=== PATIENT | male | born 1935 | race Caucasian/White ===

== ENCOUNTER → 2017-03-03 | Outpatient (CLI) | payer OTHER ==
--- NOTE | 2017-03-03 13:20 | REP ---
PA and lateral chest: Comparison is 11/19/2015. Lung carter are hyperinflated, unchanged. Cardiac size is borderline enlarged, unchanged. There are no nodules or masses. There are no infiltrates or effusions. 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 Impression: There is no interval change. Signed by Nathanael Andino MD 03/03/2017 10:30 A
== END ==
LOC: M SMT 08:58
PROVIDERS: ATTEND Internal Medicine Pulmonary Disease
DX: J44.9 Chronic obstructive pulmonary disease, unspecified (principal)

== ENCOUNTER → 2017-04-08 | Outpatient (CLI) | payer OTHER ==
[2017-04-08 14:10] LABS: BASO % 0.3 % (0.0-1.0); EOS # 0.1 K/mm3 (0.0-0.50); EOS % 0.9 % (0.0-3.0); LARGE UNSTAINED CELL # 0.2 K/mm3 (0.0-0.4); MEAN CORPUSCULAR HEMOGLOBIN 30.9 pg (27.0-33.0); MEAN CORPUSCULAR VOLUME 93.7 fl (80.0-96.0); MONO # 0.5 K/mm3 (0.0-0.8); MONO % 5.8 % (0.0-5.0); NEUTROPHILS # 7.1 K/mm3 (1.8-7.7); PLATELET COUNT, AUTOMATED 320 k/mm3 (150-450); RED CELL DISTRIBUTION WIDTH 14.8 % (11.5-14.5); WHITE BLOOD COUNT 8.9 K/mm3 (4.0-10.0)
[2017-04-12 14:12] LABS: D001-IgE D pteronyssinus <0.10 kU/L (Class 0); E001-IgE Cat Epith/Dander < 0.10 kU/L (Class 0); E005-IgE Dog Dander < 0.10 kU/L (Class 0); G002-IgE Bermuda Grass < 0.10 kU/L (Class 0); G008-IgE Kentucky Bluegrass < 0.10 kU/L (Class 0); M001-IgE Penicillium chrysogen < 0.10 kU/L (Class 0); M002 IgE Cladosporium herbaru < 0.10 kU/L (Class 0); M003 IgE Aspergillus fumigatu < 0.10 kU/L (Class 0); M006-IgE Alternaria alternata < 0.10 kU/L (Class 0); T001-IgE Maple/Box Elder < 0.10 kU/L (Class 0); T003-IgE Common Silver Birch < 0.10 kU/L (Class 0); T007-IgE Oak, White < 0.10 kU/L (Class 0); T008-IgE Elm, American < 0.10 kU/L (Class 0); T015-IgE Ash, White < 0.10 kU/L (Class 0); T041-IgE Hickory, White < 0.10 kU/L (Class 0); W001-IgE Ragweed, Short < 0.10 kU/L (Class 0); W009-IgE Plantain, English < 0.10 kU/L (Class 0); W014-IgE Pigweed, Rough < 0.10 kU/L (Class 0); W018-IgE Sheep Sorrel < 0.10 kU/L (Class 0)
== END ==
LOC: M SMT 09:08
PROVIDERS: ATTEND Internal Medicine Pulmonary Disease
DX: J44.1 Chronic obstructive pulmonary disease with (acute) exacerbation (principal)

== ENCOUNTER → 2017-05-02 | Outpatient (CLI) | payer OTHER ==
--- NOTE | 2017-05-03 02:24 | REP ---
Clinical: Dyspnea. Shortness of breath. Technique: PA and lateral. Comparison: 03/03/2017. Findings: Mediastinum and cardiac silhouette are within normal limits and stable. Lung carter demonstrate chronic, stable interstitial changes without acute consolidation, definite effusion, or pneumothorax. Blunting of the left costophrenic angle and diaphragmatic surface appears chronic. Skeletal structures demonstrate stable degenerative changes. Impression: Chronic stable changes. No acute cardiopulmonary process appreciated. Signed by Chris Diaz MD 05/03/2017 02:16 A
== END ==
LOC: M SMT 10:25
PROVIDERS: ATTEND Internal Medicine Cardiovascular Disease
DX: R06.02 Shortness of breath (principal)

== ENCOUNTER → 2017-06-29 | Outpatient (REF) | payer OTHER | LOC: M LAB REF 13:15 | PROVIDERS: ATTEND Internal Medicine Pulmonary Disease | DX: J44.1 Chronic obstructive pulmonary disease with (acute) exacerbation (principal) ==

== ENCOUNTER → 2017-06-30 | Outpatient (CLI) | payer OTHER ==
--- NOTE | 2017-06-30 14:15 | REP ---
PA and lateral chest: Comparisons are 05/02/2017 and 01/30/2015 per There are no infiltrates or effusions. Cardiac size is normal. The ruma and mediastinum are unremarkable. There is chronic mild interstitial coarsening compatible with chronic interstitial lung disease, unchanged. Impression: There are no new or acute cardiopulmonary findings. There are chronic stable findings. Signed by Nathanael Andino MD 06/30/2017 02:06 P
[2017-06-30 17:37] LABS: MEAN CORPUSCULAR HEMOGLOBIN 29.2 pg (27.0-33.0); MEAN CORPUSCULAR VOLUME 91.3 fl (80.0-96.0); PLATELET COUNT, AUTOMATED 503 10^3/uL (150-450); RED CELL DISTRIBUTION WIDTH 16.1 % (11.5-14.5); WHITE BLOOD COUNT 26.9 10^3/uL (4.0-10.0)
[2017-06-30 17:58] LABS: ADD MANUAL DIFFER YES; DIFF SLIDE NUMBER 232; POS COUNT POS FLAG; POSITIVE MORPH POS FLAG; WBC SCAT POS FLAG
[2017-06-30 18:32] LABS: ALBUMIN 3.3 GM/DL (3.2-5.2); CALCIUM LEVEL 9.3 MG/DL (8.8-10.2); CREATININE FOR GFR 1.44 MG/DL (0.70-1.30); GLOMERULAR FILTRATION RATE 50.4 (>42); POTASSIUM SERUM 4.7 MEQ/L (3.5-5.1)
[2017-06-30 20:49] LABS: ANISOCYTOSIS 1+; GIANT PLATELETS 1+
== END ==
LOC: M SMT 13:28
PROVIDERS: ATTEND Nurse Practitioner Adult Health
DX: R06.02 Shortness of breath (principal); R09.02 Hypoxemia; J44.9 Chronic obstructive pulmonary disease, unspecified

== ENCOUNTER → 2017-11-23 | Outpatient (CLI) | payer OTHER | LOC: M SMT 12:57 | DX: J44.1 Chronic obstructive pulmonary disease with (acute) exacerbation (principal) | CPT/HCPCS: 71046 ==

== ENCOUNTER 2020-07-26 08:44 | Inpatient (IN) | payer MEDICARE, OTHER ==
[~2020-07-26] VITALS: Ht 172.7 cm; Wt 88.1 kg
[2020-07-26] MEDS ORDERED: NS 1,000 ML IV SCH (09:10)
[2020-07-26] MEDS ORDERED: methylPREDNISolone 125MG 2ML VIAL IV ONE (09:15)
[2020-07-26] MEDS: COMBIVENT RESPIMAT 100-20MCG INHALER 4GM INH SCH ×4 (09:33→20:00)
[2020-07-26 09:48] LABS: BASO % 0.2 % (0.0-1.0); HEMOGLOBIN 13.9 g/dl (13.5-17.5); LYMPH # 0.5 10^3/uL (1.5-5.0); LYMPH % 3.2 % (24.0-44.0); MEAN CORPUSCULAR HEMOGLOBIN 29.3 pg (27.0-33.0); MEAN CORPUSCULAR HGB CONC 30.9 g/dl (32.0-36.5); MEAN CORPUSCULAR VOLUME 94.7 fl (80.0-96.0); MONO # 0.9 10^3/uL (0.0-0.8); MONO % 6.3 % (0.0-5.0); NEUTROPHILS # 12.8 10^3/uL (1.5-8.5); NEUTROPHILS % 88.4 % (36.0-66.0); PLATELET COUNT, AUTOMATED 286 10^3/uL (150-450); RED BLOOD COUNT 4.75 10^6/uL (4.30-6.10); WHITE BLOOD COUNT 14.5 10^3/uL (4.0-10.0)
--- NOTE | 2020-07-26 09:48 | REP ---
INDICATION: DYSPNEA/COUGH COMPARISON: 11/23/2017 TECHNIQUE: Portable AP view of the chest FINDINGS: The visualized cardiac silhouette appears enlarged suggesting cardiomegaly which may represent a new finding as compared to prior examination. Lung carter demonstrate chronic interstitial changes and evidence for COPD. Superimposed lower lobe infiltrates are identified. No obvious effusion. No pneumothorax. Skeletal structures are intact. IMPRESSION: 1. Questionable relatively new onset cardiomegaly. 2. Chronic changes with superimposed lower lobe opacities/infiltrates. <Electronically signed by Chris Diaz > 07/26/20 [id number]
[2020-07-26] MEDS ORDERED: cefTRIAXone SOD 1 GM in D5W MINI-BAG PLUS 50 ML IV ONE (10:15)
[2020-07-26] MEDS ORDERED: AZITHROMYCIN INJ 500 MG, VIAL MATE ADAPTER 1 EACH in D5W 250 ML IV ONE (10:15)
[2020-07-26 10:21] LABS: ALBUMIN 3.4 GM/DL (3.2-5.2); BILIRUBIN,DIRECT 0.2 MG/DL (0.0-0.2); BILIRUBIN,TOTAL 0.8 MG/DL (0.2-1.0); CALCIUM LEVEL 9.2 MG/DL (8.8-10.2); CK-MB VALUE MASS 1.6 NG/ML (<3.6); CREATININE FOR GFR 1.46 MG/DL (0.70-1.30); GLOMERULAR FILTRATION RATE 49.1 (>35); MB/CK RELATIVE INDEX 1.54 (< OR =4); POTASSIUM SERUM 4.6 MEQ/L (3.5-5.1); THYROID STIMULATING HORMONE 2.08 uIU/ML (0.358-3.740); THYROXINE (T4) 10.4 UG/DL (4.5-12.0); TOTAL PROTEIN 6.4 GM/DL (6.4-8.2); TROPONIN I 0.1 NG/ML (< 0.10)
[2020-07-26] MEDS ORDERED: AMIO200T3 PO (10:59)
[2020-07-26] MEDS ORDERED: FURO40TA2 PO (10:59)
[2020-07-26] MEDS ORDERED: IPRA0.00 INH (10:59)
[2020-07-26] MEDS ORDERED: ALLO100T PO (10:59)
[2020-07-26] MEDS ORDERED: PRED10TA2 PO (10:59)
[2020-07-26] MEDS ORDERED: PERF20NE2 INH (10:59)
[2020-07-26] MEDS ORDERED: D31000TA PO (10:59)
[2020-07-26] MEDS ORDERED: ATOR40TA75 PO (10:59)
[2020-07-26] MEDS ORDERED: SPIR-10 PO (10:59)
[2020-07-26] MEDS ORDERED: ASPI81TA26 PO (11:00)
[2020-07-26] MEDS ORDERED: LORA-622 PO (11:00)
[2020-07-26] MEDS ORDERED: IPRATROPIUM 0.5MG/ALBUTEROL 2.5MG INH SOL UD 3ML (DUONEB) NEB PRN (13:15)
[2020-07-26] MEDS: dexameTHASONE 4 MG/ML 1ML VIAL (J1100 PER 1MG) IV SCH (13:19)
--- NOTE | 2020-07-26 15:55 | HPEPDOC ---
[facility] Medical History & Physical Date of Admission Jul 26, 2020 Date of Service: Jul 26, 2020 History and Physical CHIEF COMPLAINT: shortness of breath HISTORY OF PRESENT ILLNESS: 85 year old male presents for several day history of worsening shortness of breath. patient has hypoxic respiratory failure at baseline requiring 3-4L supplemental oxygen. Denies know sick contacts, chest pain, abdominal pain, nausea, vomiting, diarrhea. PAST MEDICAL HISTORY: #afib? #gout #DLP #CHF #COPD #chronic hypoxic respiratory failure requiring supplemental oxygen - 3L ALLERGIES: Please see below. REVIEW OF SYSTEMS: Negative except as per HPI. HOME MEDICATIONS: Please see below. PHYSICAL EXAMINATION: VITAL SIGNS: See below LABORATORY DATA: See below. MICROBIOLOGY: Please see below. A/P: 85yo male for several day history of worsening shortness of breath. Respiratory panel positive for COVID with past medical history of hypertension, COPD, chronic hypoxic respiratory failure, afib, CHF. #respiratory distress - secondary to COVID-19 - supplemental oxygen - dexa day #1 - remdesevir day #1 (loading dose) - abx given likely concomitant copd exacerbation - ceftriaxone/azithro day #1 #COVID 19 - as above - coags still pending to determine anticoagulation #HTN #gout #CHF - lasix #copd - as above, steroids, respiratory treatments, supplemental oxygen, IS, acapella #DVT prophylaxis Vital Signs Vital Signs Date Time Temp Pulse Resp B/P (MAP) Pulse Ox O2 Delivery O2 Flow Rate FiO2 07/26/20 15:17 96.0 07/26/20 15:15 22 101/50 (67) 07/26/20 15:13 96 07/26/20 11:28 Nasal Cannula 6.0 07/26/20 08:46 30 Laboratory Data Labs 24H Laboratory Tests 2 07/26/20 09:10: Anion Gap 7L, Glomerular Filtration Rate 49.1, Calcium Level 9.2, Total Bilirubin 0.8, Direct Bilirubin 0.2, Aspartate Amino Transf (AST/SGOT) 23, Alanine Aminotransferase (ALT/SGPT) 19, Alkaline Phosphatase 70, Total Creatine Kinase 104, Creatine Kinase MB 1.6, Creatine Kinase MB Relative Index 1.54, Troponin I 0.10, HE-Wsq-S-Type Natriuretic Peptide 376, Total Protein 6.4, Albumin 3.4, Albumin/Globulin Ratio 1.1, Thyroid Stimulating Hormone (TSH) 2.080, Thyroxine (T4) 10.4 07/26/20 09:21: Immature Granulocyte % (Auto) 1.9, Neutrophils (%) (Auto) 88.4H, Lymphocytes (%) (Auto) 3.2L, Monocytes (%) (Auto) 6.3H, Eosinophils (%) (Auto) 0.0, Basophils (%) (Auto) 0.2, Neutrophils # (Auto) 12.8H, Lymphocytes # (Auto) 0.5L, Monocytes # (Auto) 0.9H, Eosinophils # (Auto) 0.0, Basophils # (Auto) 0.0, Nucleated Red Blood Cells % (auto) 0.1H, Lactic Acid Level 2.0 07/26/20 09:27: POC pH (Misc Panel) 7.416, POC Base Excess (Misc Panel) -3.0L, POC Saturated Percent O2 (Misc) 95, POC pO2 (Misc Panel) 72.0L, POC pCO2 (Misc Panel) 33.0L, POC HCO3 (Misc Panel) 21.2L, POC Total CO2 (Misc Panel) 22.0L 07/26/20 11:50: POC pH (Misc Panel) 7.392, POC Base Excess (Misc Panel) -4.0L, POC Saturated Percent O2 (Misc) 98, POC pO2 (Misc Panel) 97.0, POC pCO2 (Misc Panel) 35.1, POC HCO3 (Misc Panel) 21.4L, POC Total CO2 (Misc Panel) 22.0L 07/26/20 15:38: CBC/BMP Laboratory Tests 07/26/20 09:10 07/26/20 09:21 Microbiology Microbiology 07/26/20 Blood Culture, Received Pending 07/26/20 Respiratory Virus Panel (PCR) (KARYN) - Final, Complete SARS-CoV-2 (COVID 19) 07/26/20 Blood Culture, Received Pending Home Medications Scheduled Allopurinol (Allopurinol) 100 Mg Tablet, 100 MG PO DAILY Amiodarone HCl (Amiodarone HCl) 200 Mg Tablet, 200 MG PO Q2D Aspirin (Aspirin EC) 81 Mg Tablet.dr, 81 MG PO DAILY Atorvastatin Calcium (Atorvastatin Calcium) 40 Mg Tablet, 40 MG PO QHS Cholecalciferol (Vitamin D3) (Vitamin D3) 25 Mcg Tablet, 25 MCG PO DAILY Formoterol Fumarate (Perforomist) 20 Mcg/2 Ml Vial.neb, 20 MCG INH BID Furosemide (Furosemide) 40 Mg Tablet, 40 MG PO DAILY FOR HOME WEIGHT OF 207LBS OR MORE Loratadine (Loratadine) 10 Mg Tablet, 10 MG PO DAILY Prednisone (Prednisone) 10 Mg Tablet, 20 MG PO DAILY Spironolactone (Spironolactone) 25 Mg Tablet, 25 MG PO DAILY Scheduled PRN Ipratropium/Albuterol Sulfate (Iprat-Albut 0.5-3(2.5) mg/3 ml) 3 Ml Ampul.neb, 1 JUANJO INH QID PRN for SHORTNESS OF BREATH Allergies Coded Allergies: No Known Allergies (Unverified , 07/26/20) A-FIB/CHADSVASC A-FIB History Current/History of A-Fib/PAF?: No RASHMI RENNER MD Jul 26, 2020 15:55
[2020-07-26] MEDS ORDERED: IPRATROPIUM 0.5MG/ALBUTEROL 2.5MG INH SOL UD 3ML (DUONEB) NEB SCH (16:00)
[2020-07-26 16:08] LABS: INR 1.15; PROTHROMBIN TIME 14.9 SECONDS (12.5-14.3)
[2020-07-26 16:09] LABS: PARTIAL THROMBOPLASTIN TIME 31.9 SECONDS (24.2-38.5)
[2020-07-26 16:11] LABS: D-DIMER QUANT 745.42 ng/ml (<500)
[2020-07-26 16:20] LABS: C REACTIVE PROTEIN QUANTITATIV 7.03 MG/DL (0.00-0.30); CK-MB VALUE MASS 2.6 NG/ML (<3.6); CPK CREATINE PHOSPHOKINASE 138 U/L (39-308); FERRITIN 148 NG/ML (26-388); LDH LACTATE DEHYDROGENASE 334 U/L (87-241); MB/CK RELATIVE INDEX 1.88 (< OR =4); NT-PRO BNP 669 PG/ML (<450); TRIGLYCERIDES LEVEL 78 MG/DL (<150)
[2020-07-26] MEDS ORDERED: REMDESIVIR 200 MG in NS 250 ML IV ONE (17:00)
[2020-07-26 17:17] VITALS: BP 135/62
[2020-07-26 17:20] VITALS: O2SAT 94
--- NOTE | 2020-07-26 18:01 | ECGEPIP ---
[facility] - ED Test Date: 2020-07-26 Pat Name: POOL COLEMAN Department: Room: - Gender: Male [employer]ber [employer] Worker: : 1935 Requested By: Satish Cortes Order Number: [id number] Reading MD: Satish Cortes Measurements Intervals [place] Rate: 97 P: -8 AR: 192 QRS: 32 QRSD: 102 T: 69 QT: 338 QTc: 431 Interpretive Statements SINUS RHYTHM NONSPECIFIC ST & T-WAVE ABNORMALITY NO PRIOR ECG FOR COMPARISON Electronically Signed on 07-26-2020 18:01:49 EST by Satish Cortes
[2020-07-26] MEDS: ASPIRIN 81 MG ENTERIC TAB PO SCH (18:14)
[2020-07-26] MEDS: SPIRONOLACTONE 25 MG TAB PO SCH (18:14)
[2020-07-26] MEDS: AMIODARONE 200 MG TAB (PACERONE) PO SCH (18:14)
[2020-07-26] MEDS ORDERED: SODIUM CHLORIDE 0.9% INJ 10 ML SYR IV ONE (19:00)
[2020-07-26] MEDS ORDERED: COMBIVENT RESPIMAT 100-20MCG INHALER 4GM INH PRN (19:00)
[2020-07-26] MEDS: ATORVASTATIN 20 MG TAB PO SCH (19:38)
[2020-07-26] MEDS: ENOXAPARIN 40MG/0.4ML SYRINGE (J1650 PER 10MG) SC SCH (19:38)
[2020-07-26] MEDS: SYMBICORT 160/4.5MCG INHALER 6GM INH SCH (20:00)
[2020-07-26] MEDS ORDERED: ALBUTEROL 90 MCG/ACT 8GM HFA INHALER INH PRN (20:31)
[2020-07-26 20:54] VITALS: BP 112/54
[2020-07-26] MEDS ORDERED: FORMOTEROL FUMARATE 20 MCG/2 ML INHALATION SOLUTION (PERFOROMIST) INH SCH (21:00)
[2020-07-27 01:29] LABS: INR 1.16
[2020-07-27 01:30] LABS: PARTIAL THROMBOPLASTIN TIME 49.7 SECONDS (24.2-38.5)
[2020-07-27 01:44] LABS: C REACTIVE PROTEIN QUANTITATIV 10.6 MG/DL (0.00-0.30)
[2020-07-27 03:49] VITALS: BP 113/60
[2020-07-27] MEDS: COMBIVENT RESPIMAT 100-20MCG INHALER 4GM INH SCH ×7 (03:55→23:43)
[2020-07-27 08:00] VITALS: BP 157/85; O2SAT 92
[2020-07-27] MEDS ORDERED: SYMBICORT 80/4.5MCG INHALER 6GM INH SCH (08:00)
[2020-07-27] MEDS: ASPIRIN 81 MG ENTERIC TAB PO SCH (08:05)
[2020-07-27] MEDS: LORATADINE 10 MG TAB PO SCH (08:05)
[2020-07-27] MEDS: allopurinoL 100 MG TAB PO SCH (08:05)
[2020-07-27] MEDS: SPIRONOLACTONE 25 MG TAB PO SCH (08:05)
[2020-07-27] MEDS: dexameTHASONE 4 MG/ML 1ML VIAL (J1100 PER 1MG) IV SCH (08:06)
[2020-07-27] MEDS: FUROSEMIDE 40 MG TAB PO SCH (08:06)
[2020-07-27] MEDS: SYMBICORT 160/4.5MCG INHALER 6GM INH SCH ×2 (08:12→19:57)
[2020-07-27 08:28] LABS: BASO % 0.2 % (0.0-1.0); HEMATOCRIT 39.3 % (42.0-52.0); INR 1.2; LYMPH # 0.2 10^3/uL (1.5-5.0); LYMPH % 1.6 % (24.0-44.0); MEAN CORPUSCULAR HEMOGLOBIN 28.7 pg (27.0-33.0); MEAN CORPUSCULAR HGB CONC 30.3 g/dl (32.0-36.5); MEAN CORPUSCULAR VOLUME 94.9 fl (80.0-96.0); MONO # 0.6 10^3/uL (0.0-0.8); MONO % 6.4 % (0.0-5.0); NEUTROPHILS # 8.6 10^3/uL (1.5-8.5); NEUTROPHILS % 90.5 % (36.0-66.0); PLATELET COUNT, AUTOMATED 244 10^3/uL (150-450); PROTHROMBIN TIME 15.4 SECONDS (12.5-14.3); RED BLOOD COUNT 4.14 10^6/uL (4.30-6.10); WHITE BLOOD COUNT 9.5 10^3/uL (4.0-10.0)
[2020-07-27 08:29] LABS: PARTIAL THROMBOPLASTIN TIME 39.7 SECONDS (24.2-38.5)
[2020-07-27 08:32] LABS: D-DIMER QUANT 829.31 ng/ml (<500)
[2020-07-27 08:40] LABS: HEMOGLOBIN 11.9 g/dl (13.5-17.5)
[2020-07-27 08:50] LABS: ALBUMIN 2.6 GM/DL (3.2-5.2); ALT/SGPT 21 U/L (12-78); BILIRUBIN,DIRECT 0.2 MG/DL (0.0-0.2); BILIRUBIN,TOTAL 0.4 MG/DL (0.2-1.0); BLOOD UREA NITROGEN 34 MG/DL (7-18); CALCIUM LEVEL 8.1 MG/DL (8.8-10.2); CARBON DIOXIDE LEVEL 22 MEQ/L (21-32); CHLORIDE LEVEL 111 MEQ/L (98-107); CREATININE FOR GFR 1.13 MG/DL (0.70-1.30); FERRITIN 219 NG/ML (26-388); GLOMERULAR FILTRATION RATE > 60.0 (>35); GLUCOSE, FASTING 115 MG/DL (70-100); MAGNESIUM LEVEL 2.2 MG/DL (1.8-2.4); NT-PRO BNP 950 PG/ML (<450); POTASSIUM SERUM 4.3 MEQ/L (3.5-5.1); SODIUM LEVEL 141 MEQ/L (136-145); TOTAL PROTEIN 5.2 GM/DL (6.4-8.2); TRIGLYCERIDES LEVEL 59 MG/DL (<150)
--- NOTE | 2020-07-27 14:38 | IPNPDOC ---
Text Note Date of Service The patient was seen on 07/27/20. NOTE Subjective: Patient seen and examined at bedside, voices no new medical complaints. No acute overnight events reported. Patient states he is slowly feeling better. Objective: General: NAD, sitting comfortably at edge of bed HEENT: NC/AT A/P: 85yo male for several day history of worsening shortness of breath. Respiratory panel positive for COVID with past medical history of hypertension, COPD, chronic hypoxic respiratory failure, afib, CHF. #COVID-19 PNA with acute/chronic respiratory failure - dexamethasone 6mg day #2 - remdesevir day #2 - abx given likely concomitant copd exacerbation - ceftriaxone/azithro day #2 - IS, inhalers, tessalon -f/u procalcitonin -inflammatory markers increased from yesterday -supplemental oxygen to goal 88-92% - prophylactic dosing lovenox given ddimer<1000 - teds/sequentials #HTN #gout #CHF - lasix #copd - as above, steroids, respiratory treatments, supplemental oxygen, IS, acapella #DVT prophylaxis VS,Fishbone, I+O VS, Fishbone, I+O Laboratory Tests 07/27/20 07:21 Vital Signs Date Time Temp Pulse Resp B/P (MAP) Pulse Ox O2 Delivery O2 Flow Rate FiO2 07/27/20 08:00 96.0 75 22 157/85 (109) 92 Venturi Mask 12.0 35 I&O- Last 24 Hours up to 6 AM 07/27/20 06:00 Intake Total 605 ml Output Total 350 ml Balance 255 ml RASHMI RENNER MD Jul 27, 2020 14:38
[2020-07-27 16:00] VITALS: BP 134/70; O2SAT 92
[2020-07-27] MEDS: REMDESIVIR 100 MG in NS 250 ML IV SCH (17:54)
[2020-07-27] MEDS: SODIUM CHLORIDE 0.9% INJ 10 ML SYR IV SCH (19:57)
[2020-07-27] MEDS: ATORVASTATIN 20 MG TAB PO SCH (19:59)
[2020-07-27] MEDS: ENOXAPARIN 40MG/0.4ML SYRINGE (J1650 PER 10MG) SC SCH (19:59)
[2020-07-27 20:00] VITALS: O2SAT 92
[2020-07-27 20:06] VITALS: BP 140/67
[2020-07-27 23:45] VITALS: O2SAT 92
[2020-07-28] VITALS (7 sets, daily range): BP systolic 123–162; BP diastolic 57–109; O2SAT 90–92
[2020-07-28] MEDS: COMBIVENT RESPIMAT 100-20MCG INHALER 4GM INH SCH ×6 (04:01→23:52)
[2020-07-28] MEDS: SYMBICORT 160/4.5MCG INHALER 6GM INH SCH ×2 (07:47→21:03)
[2020-07-28] MEDS: ASPIRIN 81 MG ENTERIC TAB PO SCH (09:01)
[2020-07-28] MEDS: SPIRONOLACTONE 25 MG TAB PO SCH (09:01)
[2020-07-28] MEDS: FUROSEMIDE 40 MG TAB PO SCH (09:01)
[2020-07-28] MEDS: LORATADINE 10 MG TAB PO SCH (09:01)
[2020-07-28] MEDS: dexameTHASONE 4 MG/ML 1ML VIAL (J1100 PER 1MG) IV SCH (09:02)
[2020-07-28] MEDS: allopurinoL 100 MG TAB PO SCH (09:02)
[2020-07-28] MEDS: AMIODARONE 200 MG TAB (PACERONE) PO SCH (09:02)
[2020-07-28 10:47] LABS: HEMATOCRIT 41.6 % (42.0-52.0); HEMOGLOBIN 12.9 g/dl (13.5-17.5); MEAN CORPUSCULAR HEMOGLOBIN 28.8 pg (27.0-33.0); MEAN CORPUSCULAR VOLUME 92.9 fl (80.0-96.0); PLATELET COUNT, AUTOMATED 266 10^3/uL (150-450); RED BLOOD COUNT 4.48 10^6/uL (4.30-6.10); WHITE BLOOD COUNT 9.7 10^3/uL (4.0-10.0)
[2020-07-28 11:07] LABS: INR 1.03; PROTHROMBIN TIME 13.7 SECONDS (12.5-14.3)
[2020-07-28 11:24] LABS: ALBUMIN 2.9 GM/DL (3.2-5.2); BILIRUBIN,DIRECT 0.2 MG/DL (0.0-0.2); BILIRUBIN,TOTAL 0.5 MG/DL (0.2-1.0); CALCIUM LEVEL 8.9 MG/DL (8.8-10.2); CREATININE FOR GFR 1.31 MG/DL (0.70-1.30); GLOMERULAR FILTRATION RATE 55.6 (>35); MAGNESIUM LEVEL 2.3 MG/DL (1.8-2.4); POTASSIUM SERUM 4.3 MEQ/L (3.5-5.1); TOTAL PROTEIN 5.6 GM/DL (6.4-8.2)
[2020-07-28 11:39] LABS: ATYPICAL LYMPH 2 % (0-5); LYMPHOCYTES 2 % (16-44); MONOCYTES 1 % (0-5); NEUTROPHILS 95 % (28-66)
[2020-07-28 11:40] LABS: PLATELET ESTIMATE NORMAL (NORMAL)
[2020-07-28 13:01] LABS: HEPATITIS B SURFACE ANTIGEN NEGATIVE (NEGATIVE)
[2020-07-28 13:29] LABS: HIV 1&2 SCREEN CENTAUR NEGATIVE (NEGATIVE)
[2020-07-28] MEDS: REMDESIVIR 100 MG in NS 250 ML IV SCH (18:50)
[2020-07-28] MEDS: SODIUM CHLORIDE 0.9% INJ 10 ML SYR IV SCH (18:51)
[2020-07-28] MEDS: ATORVASTATIN 20 MG TAB PO SCH (23:11)
[2020-07-28] MEDS: ENOXAPARIN 40MG/0.4ML SYRINGE (J1650 PER 10MG) SC SCH (23:12)
--- NOTE | 2020-07-28 23:38 | IPNPDOC ---
Text Note Date of Service The patient was seen on 07/28/20. NOTE Subjective: Patient seen and examined at bedside, voices no new medical complaints. No acute overnight events reported. Patient states he is slowly feeling better. Objective: General: NAD, sitting comfortably at edge of bed HEENT: NC/AT A/P: 85yo male for several day history of worsening shortness of breath. Respiratory panel positive for COVID with past medical history of hypertension, COPD, chronic hypoxic respiratory failure, afib, CHF. #COVID-19 PNA with acute/chronic respiratory failure - dexamethasone 6mg day #3 - remdesevir day #3 - abx given likely concomitant copd exacerbation - ceftriaxone/azithro day #3 - IS, inhalers, tessalon -f/u procalcitonin -inflammatory markers increased from yesterday -supplemental oxygen to goal 88-92% - prophylactic dosing lovenox given ddimer<1000 - teds/sequentials #HTN #gout #CHF - lasix as per home meds #copd - as above, steroids, respiratory treatments, supplemental oxygen, IS, acapella #DVT prophylaxis - as per above - loevnox/mechanical VS,Fishbone, I+O VS, Fishbone, I+O Laboratory Tests 07/28/20 09:46 Vital Signs Date Time Temp Pulse Resp B/P (MAP) Pulse Ox O2 Delivery O2 Flow Rate FiO2 07/28/20 20:00 98.1 75 20 139/65 (89) 91 Venturi Mask 15.0 07/28/20 16:00 50 I&O- Last 24 Hours up to 6 AM 07/28/20 06:00 Intake Total 450 ml Output Total 1175 ml Balance -725 ml RASHMI RENNER MD Jul 28, 2020 23:38
[2020-07-29] VITALS (8 sets, daily range): BP systolic 115–168; BP diastolic 70–81; O2SAT 89–93
[2020-07-29] MEDS: COMBIVENT RESPIMAT 100-20MCG INHALER 4GM INH SCH ×6 (03:58→22:29)
[2020-07-29 08:25] LABS: BASO % 0.2 % (0.0-1.0); HEMATOCRIT 41.5 % (42.0-52.0); HEMOGLOBIN 13.2 g/dl (13.5-17.5); LYMPH # 0.3 10^3/uL (1.5-5.0); LYMPH % 2.7 % (24.0-44.0); MEAN CORPUSCULAR HEMOGLOBIN 29.5 pg (27.0-33.0); MEAN CORPUSCULAR HGB CONC 31.8 g/dl (32.0-36.5); MEAN CORPUSCULAR VOLUME 92.8 fl (80.0-96.0); MONO # 0.7 10^3/uL (0.0-0.8); MONO % 6.6 % (0.0-5.0); NEUTROPHILS % 89.7 % (36.0-66.0); PLATELET COUNT, AUTOMATED 276 10^3/uL (150-450); RED BLOOD COUNT 4.47 10^6/uL (4.30-6.10); WHITE BLOOD COUNT 10.1 10^3/uL (4.0-10.0)
[2020-07-29 08:41] LABS: INR 1.07; PROTHROMBIN TIME 14.1 SECONDS (12.5-14.3)
[2020-07-29 08:42] LABS: PARTIAL THROMBOPLASTIN TIME 36.2 SECONDS (24.2-38.5)
[2020-07-29] MEDS: SYMBICORT 160/4.5MCG INHALER 6GM INH SCH ×2 (08:42→19:37)
[2020-07-29 09:06] LABS: BILIRUBIN,DIRECT 0.2 MG/DL (0.0-0.2); BILIRUBIN,TOTAL 0.6 MG/DL (0.2-1.0); CREATININE FOR GFR 1.29 MG/DL (0.70-1.30); GLOMERULAR FILTRATION RATE 56.6 (>35); MAGNESIUM LEVEL 2.3 MG/DL (1.8-2.4); POTASSIUM SERUM 4.5 MEQ/L (3.5-5.1); TOTAL PROTEIN 5.7 GM/DL (6.4-8.2)
[2020-07-29] MEDS: dexameTHASONE 4 MG/ML 1ML VIAL (J1100 PER 1MG) IV SCH (09:55)
[2020-07-29] MEDS: LORATADINE 10 MG TAB PO SCH (09:55)
[2020-07-29] MEDS: allopurinoL 100 MG TAB PO SCH (09:55)
[2020-07-29] MEDS: ASPIRIN 81 MG ENTERIC TAB PO SCH (09:55)
[2020-07-29] MEDS: FUROSEMIDE 40 MG TAB PO SCH (09:55)
[2020-07-29] MEDS: SPIRONOLACTONE 25 MG TAB PO SCH (09:55)
--- NOTE | 2020-07-29 11:37 | IPNPDOC ---
Text Note Date of Service The patient was seen on 07/29/20. NOTE Patient seen and examined at bedside. No acute overnight events reported. Marianne iejoyce states he is feeling better. PHYSICAL EXAMINATION: General: The patient is awake, alert, oriented x3, sitting up in the bed in no apparent distress.. He is on 15 L and has been de-escalate to 8 L Head and Neck Exam: Extraocular muscles intact. Pupils equally round and reactive to light. Mucous membranes are moist. Neck is supple. There is no jugular venous distention (JVD). Cardiovascular: S1 and S2, regular rate. no bilateral lower extremities. Respiratory: Mild inspiratory crackles at the right base, mildly decreased breath sounds at the left side. Abdomen: Soft. Positive bowel sounds. Nontender. No organomegaly. Genitourinary: Deferred Musculoskeletal: Clubbing of the fingernails, no cyanosis was noted. Central Nervous System (AXMINSTER WEAVER): No focal deficit. Power is 5/5 in all extremities. Assessment and plan 85yo male for several day history of worsening shortness of breath. Respiratory panel positive for COVID with past medical history of hypertension, COPD, chronic hypoxic respiratory failure on 3-4 L of home oxygen, on amiodarone for some reasons which he doesn't know and on Lasix for possible diastolic heart failure is being admitted for hypoxic respiratory failure requiring more oxygen than his baseline and Covid 19 interstitial pneumonia. He has been getting better and was on 15 L, which has been de-escalate to 8 L today 1. COVID-19 PNA with acute/chronic respiratory failure: Continue dexamethasone 6mg day #4, remdesevir day #4. Also ceftriaxone/azithro day #4 . Continue with inhalers and Tessalon Perles. Inflammatory markers have been trending down. Continue supplemental oxygen to maintain the saturation about 92. Prophylactic low-dose of Lovenox as d-dimer is less than 3000 2. HTN: And her home medication not contraindicated 3. CHF. Diastolic heart failure as he does not state that he was heart is weak and he continues to be on Lasix. Not in any exacerbation. On status is okay. Input output monitoring. 2 g sodium restriction. 4. copd: as above, steroids, respiratory treatments, supplemental oxygen, IS, acapella DVT prophylaxis PT, OT consult. Likely home within the next 24-48 hours. VS,Fishbone, I+O VS, Fishbone, I+O Laboratory Tests 07/29/20 07:55 Vital Signs Date Time Temp Pulse Resp B/P (MAP) Pulse Ox O2 Delivery O2 Flow Rate FiO2 07/29/20 04:33 93 Venturi Mask 15.0 50 07/29/20 04:00 98.2 54 20 152/70 (97) I&O- Last 24 Hours up to 6 AM 07/29/20 05:59 Intake Total 1140 ml Balance 1140 ml NOEL ALVARENGA MD Jul 29, 2020 11:37
[2020-07-29] MEDS: REMDESIVIR 100 MG in NS 250 ML IV SCH (17:54)
[2020-07-29] MEDS: SODIUM CHLORIDE 0.9% INJ 10 ML SYR IV SCH (17:55)
[2020-07-29] MEDS: ATORVASTATIN 20 MG TAB PO SCH (19:36)
[2020-07-29] MEDS: ENOXAPARIN 40MG/0.4ML SYRINGE (J1650 PER 10MG) SC SCH (19:36)
[2020-07-30] VITALS (7 sets, daily range): BP systolic 138–146; BP diastolic 65–77; O2SAT 90–94
[2020-07-30] MEDS: COMBIVENT RESPIMAT 100-20MCG INHALER 4GM INH SCH ×5 (03:08→20:00)
[2020-07-30 08:00] LABS: BASO % 0.3 % (0.0-1.0); HEMATOCRIT 40.2 % (42.0-52.0); HEMOGLOBIN 12.5 g/dl (13.5-17.5); LYMPH # 0.3 10^3/uL (1.5-5.0); LYMPH % 3.4 % (24.0-44.0); MEAN CORPUSCULAR HEMOGLOBIN 29.1 pg (27.0-33.0); MEAN CORPUSCULAR HGB CONC 31.1 g/dl (32.0-36.5); MEAN CORPUSCULAR VOLUME 93.5 fl (80.0-96.0); MONO # 0.6 10^3/uL (0.0-0.8); MONO % 6.8 % (0.0-5.0); NEUTROPHILS # 7.7 10^3/uL (1.5-8.5); NEUTROPHILS % 88.1 % (36.0-66.0); PLATELET COUNT, AUTOMATED 275 10^3/uL (150-450); WHITE BLOOD COUNT 8.8 10^3/uL (4.0-10.0)
[2020-07-30] MEDS: SYMBICORT 160/4.5MCG INHALER 6GM INH SCH ×2 (08:04→20:47)
[2020-07-30 08:49] LABS: BILIRUBIN,DIRECT 0.3 MG/DL (0.0-0.2); BILIRUBIN,TOTAL 0.7 MG/DL (0.2-1.0); CREATININE FOR GFR 1.26 MG/DL (0.70-1.30); GLOMERULAR FILTRATION RATE 58.2 (>35); POTASSIUM SERUM 4.3 MEQ/L (3.5-5.1)
[2020-07-30 08:50] LABS: ALBUMIN 2.9 GM/DL (3.2-5.2); MAGNESIUM LEVEL 2.2 MG/DL (1.8-2.4); TOTAL PROTEIN 5.7 GM/DL (6.4-8.2)
[2020-07-30] MEDS: SPIRONOLACTONE 25 MG TAB PO SCH (09:55)
[2020-07-30] MEDS: ASPIRIN 81 MG ENTERIC TAB PO SCH (09:55)
[2020-07-30] MEDS: allopurinoL 100 MG TAB PO SCH (09:56)
[2020-07-30] MEDS: LORATADINE 10 MG TAB PO SCH (09:56)
[2020-07-30] MEDS: AMIODARONE 200 MG TAB (PACERONE) PO SCH (09:56)
[2020-07-30] MEDS: FUROSEMIDE 40 MG TAB PO SCH (09:56)
[2020-07-30] MEDS: dexameTHASONE 20MG/5ML VIAL (J1100 PER 1MG) IV SCH (13:34)
--- NOTE | 2020-07-30 15:12 | IPNPDOC ---
Text Note Date of Service The patient was seen on 07/30/20. NOTE Patient seen and examined at bedside. No acute overnight events reported. Marianne francisco states he is feeling better. PHYSICAL EXAMINATION: General: The patient is awake, alert, oriented x3, sitting up in the bed in no apparent distress.. He is on 15 L and has been again de-escalate to 8 L Head and Neck Exam: Extraocular muscles intact. Pupils equally round and reactive to light. Mucous membranes are moist. Neck is supple. There is no jugular venous distention (JVD). Cardiovascular: S1 and S2, regular rate. no bilateral lower extremities. Respiratory: Mild inspiratory crackles at the right base, mildly decreased breath sounds at the left side. Abdomen: Soft. Positive bowel sounds. Nontender. No organomegaly. Genitourinary: Deferred Musculoskeletal: Clubbing of the fingernails, no cyanosis was noted. Central Nervous System (PERINATAL SOCIAL WORKER): No focal deficit. Power is 5/5 in all extremities. Assessment and plan 85yo male for several day history of worsening shortness of breath. Respiratory panel positive for COVID with past medical history of hypertension, COPD, chronic hypoxic respiratory failure on 3-4 L of home oxygen, on amiodarone for some reasons which he doesn't know and on Lasix for possible diastolic heart failure is being admitted for hypoxic respiratory failure requiring more oxygen than his baseline and Covid 19 interstitial pneumonia. He has been getting better and was on 15 L, which has been again de-escalate to 8 L today. Apparently they had to go up again at night . 1. COVID-19 PNA with acute/chronic respiratory failure: Continue dexamethasone 6mg day #5, remdesevir day #5. Also ceftriaxone/azithro day #5 . Continue with inhalers and Tessalon Perles. Inflammatory markers have been trending down. Continue supplemental oxygen to maintain the saturation about 92. Prophylactic low-dose of Lovenox as d-dimer is less than 3000 2. HTN: And her home medication not contraindicated 3. CHF. Diastolic heart failure as he does not state that he was heart is weak and he continues to be on Lasix. Not in any exacerbation. On status is okay. Input output monitoring. 2 g sodium restriction. 4. copd: as above, steroids, respiratory treatments, supplemental oxygen, IS, acapella DVT prophylaxis PT, OT consult. Likely home within the next 24-48 hours. VS,Fishbone, I+O VS, Fishbone, I+O Laboratory Tests 07/30/20 06:50 Vital Signs Date Time Temp Pulse Resp B/P (MAP) Pulse Ox O2 Delivery O2 Flow Rate FiO2 07/30/20 12:00 75 17 138/65 (89) 95 Venturi Mask 15.0 50 07/30/20 04:00 96.9 I&O- Last 24 Hours up to 6 AM 07/30/20 06:00 Intake Total 510 ml Output Total 700 ml Balance -190 ml NOEL ALVARENGA MD Jul 30, 2020 15:12
[2020-07-30] MEDS: REMDESIVIR 100 MG in NS 250 ML IV SCH (17:22)
[2020-07-30] MEDS: SODIUM CHLORIDE 0.9% INJ 10 ML SYR IV SCH (19:00)
[2020-07-30] MEDS: ATORVASTATIN 20 MG TAB PO SCH (20:57)
[2020-07-30] MEDS: ENOXAPARIN 40MG/0.4ML SYRINGE (J1650 PER 10MG) SC SCH (20:57)
[2020-07-31] VITALS (9 sets, daily range): BP systolic 130–147; BP diastolic 67–86; O2SAT 90–93
[2020-07-31] MEDS: COMBIVENT RESPIMAT 100-20MCG INHALER 4GM INH SCH ×6 (01:04→20:00)
[2020-07-31 07:51] LABS: HEMATOCRIT 43.3 % (42.0-52.0); HEMOGLOBIN 13.3 g/dl (13.5-17.5); MEAN CORPUSCULAR HEMOGLOBIN 28.2 pg (27.0-33.0); MEAN CORPUSCULAR HGB CONC 30.7 g/dl (32.0-36.5); MEAN CORPUSCULAR VOLUME 91.7 fl (80.0-96.0); PLATELET COUNT, AUTOMATED 294 10^3/uL (150-450); RED BLOOD COUNT 4.72 10^6/uL (4.30-6.10); WHITE BLOOD COUNT 9.5 10^3/uL (4.0-10.0)
[2020-07-31 08:25] LABS: ANISOCYTOSIS 1+; LYMPHOCYTES 2 % (16-44); METAMYELOCYTES 2 % (0-0); MONOCYTES 4 % (0-5); MYELOCYTES 1 % (0-0); NEUTROPHILS 90 % (28-66); PLATELET ESTIMATE NORMAL (NORMAL)
[2020-07-31 08:28] LABS: ALBUMIN 3.1 GM/DL (3.2-5.2); BILIRUBIN,DIRECT 0.4 MG/DL (0.0-0.2); CREATININE FOR GFR 1.35 MG/DL (0.70-1.30); GLOMERULAR FILTRATION RATE 53.7 (>35); MAGNESIUM LEVEL 2.2 MG/DL (1.8-2.4); POTASSIUM SERUM 4.5 MEQ/L (3.5-5.1); TOTAL PROTEIN 6.1 GM/DL (6.4-8.2)
[2020-07-31 08:36] LABS: BURR CELLS 1+
[2020-07-31] MEDS: SYMBICORT 160/4.5MCG INHALER 6GM INH SCH ×2 (08:40→20:10)
[2020-07-31] MEDS: ASPIRIN 81 MG ENTERIC TAB PO SCH (09:40)
[2020-07-31] MEDS: dexameTHASONE 20MG/5ML VIAL (J1100 PER 1MG) IV SCH (09:40)
[2020-07-31] MEDS: SPIRONOLACTONE 25 MG TAB PO SCH (09:40)
[2020-07-31] MEDS: allopurinoL 100 MG TAB PO SCH (09:40)
[2020-07-31] MEDS: LORATADINE 10 MG TAB PO SCH (09:41)
[2020-07-31] MEDS: FUROSEMIDE 40 MG TAB PO SCH (09:41)
--- NOTE | 2020-07-31 13:02 | IPNPDOC ---
Text Note Date of Service The patient was seen on 07/31/20. NOTE Patient seen and examined at bedside. No acute overnight events reported. Marianne francisco states he is feeling better. PHYSICAL EXAMINATION: General: The patient is awake, alert, oriented x3, sitting up in the bed in no apparent distress.. He is on 15 L and has been again de-escalate to 8 L Head and Neck Exam: Extraocular muscles intact. Pupils equally round and reactive to light. Mucous membranes are moist. Neck is supple. There is no jugular venous distention (JVD). Cardiovascular: S1 and S2, regular rate. no bilateral lower extremities. Respiratory: Mild inspiratory crackles at the right base, mildly decreased breath sounds at the left side. Abdomen: Soft. Positive bowel sounds. Nontender. No organomegaly. Genitourinary: Deferred Musculoskeletal: Clubbing of the fingernails, no cyanosis was noted. Central Nervous System (COMMUNITY CASE MANAGER): No focal deficit. Power is 5/5 in all extremities. Assessment and plan 85yo male for several day history of worsening shortness of breath. Respiratory panel positive for COVID with past medical history of hypertension, COPD, chronic hypoxic respiratory failure on 3-4 L of home oxygen, on amiodarone for some reasons which he doesn't know and on Lasix for possible diastolic heart failure is being admitted for hypoxic respiratory failure requiring more oxygen than his baseline and Covid 19 interstitial pneumonia. He has been getting better and was on 15 L, and continues to be stable at this. He is requiring 50% FiO2. 1. COVID-19 PNA with acute/chronic respiratory failure: Continue dexamethasone 6mg day #6, remdesevir day #6. Also ceftriaxone/azithro day completed. Continue with inhalers and Tessalon Perles. Inflammatory markers have been trending down. Continue supplemental oxygen to maintain the saturation about 92. Prophylactic low-dose of Lovenox as d-dimer is less than 3000 2. HTN: And her home medication not contraindicated 3. CHF. Diastolic heart failure as he does not state that he was heart is weak and he continues to be on Lasix. Not in any exacerbation. Volume status is okay. Input output monitoring. 2 g sodium restriction. 4. copd: as above, steroids, respiratory treatments, supplemental oxygen, IS, acapella DVT prophylaxis PT, OT, keep with him for the disposition and therapy needs Likely home within the next 24-48 hours. VS,Fishbone, I+O VS, Fishbone, I+O Laboratory Tests 07/31/20 07:14 Vital Signs Date Time Temp Pulse Resp B/P (MAP) Pulse Ox O2 Delivery O2 Flow Rate FiO2 07/31/20 10:00 15.0 50 07/31/20 09:44 93 Venturi Mask 07/31/20 09:43 97.7 91 20 145/67 (93) I&O- Last 24 Hours up to 6 AM 07/31/20 06:00 Intake Total 840 ml Balance 840 ml NOEL ALVARENGA MD Jul 31, 2020 13:02
[2020-07-31] MEDS: REMDESIVIR 100 MG in NS 250 ML IV SCH (18:11)
[2020-07-31] MEDS: ATORVASTATIN 20 MG TAB PO SCH (19:23)
[2020-07-31] MEDS: ENOXAPARIN 40MG/0.4ML SYRINGE (J1650 PER 10MG) SC SCH (19:24)
[2020-08-01] VITALS (17 sets, daily range): BP systolic 127–166; BP diastolic 70–80; O2SAT 89–98
[2020-08-01] MEDS: COMBIVENT RESPIMAT 100-20MCG INHALER 4GM INH SCH ×7 (00:19→23:42)
[2020-08-01] MEDS: SYMBICORT 160/4.5MCG INHALER 6GM INH SCH ×2 (08:31→19:31)
[2020-08-01] MEDS: dexameTHASONE 20MG/5ML VIAL (J1100 PER 1MG) IV SCH (08:53)
[2020-08-01] MEDS: ASPIRIN 81 MG ENTERIC TAB PO SCH (08:53)
[2020-08-01] MEDS: AMIODARONE 200 MG TAB (PACERONE) PO SCH (08:53)
[2020-08-01] MEDS: LORATADINE 10 MG TAB PO SCH (08:53)
[2020-08-01] MEDS: SPIRONOLACTONE 25 MG TAB PO SCH (08:53)
[2020-08-01] MEDS: allopurinoL 100 MG TAB PO SCH (08:54)
[2020-08-01] MEDS: FUROSEMIDE 40 MG TAB PO SCH (08:54)
[2020-08-01] MEDS ORDERED: dexameTHASONE 20MG/5ML VIAL (J1100 PER 1MG) IV ONE (09:00)
--- NOTE | 2020-08-01 12:37 | IPNPDOC ---
Text Note Date of Service The patient was seen on 08/01/20. NOTE Patient seen and examined at bedside. No acute overnight events reported. Still requiring 50% FiO2 on Ventimask. She at times will de-escalate on a daily basis PHYSICAL EXAMINATION: General: The patient is awake, alert, oriented x3, sitting up in the bed in no apparent distress. Head and Neck Exam: Extraocular muscles intact. Pupils equally round and r eactive to light. Mucous membranes are moist. Neck is supple. There is no jugular venous distention (JVD). Cardiovascular: S1 and S2, regular rate. no bilateral lower extremities. Respiratory: Mild inspiratory crackles at the right base, mildly decreased breath sounds at the left side. Abdomen: Soft. Positive bowel sounds. Nontender. No organomegaly. Genitourinary: Deferred Musculoskeletal: Clubbing of the fingernails, no cyanosis was noted. Central Nervous System (PROCEDURE WRITER): No focal deficit. Power is 5/5 in all extremities. Assessment and plan 85yo male for several day history of worsening shortness of breath. Respiratory panel positive for COVID with past medical history of hypertension, COPD, chronic hypoxic respiratory failure on 3-4 L of home oxygen, on amiodarone for some reasons which he doesn't know possibly A. fib And on Lasix for possible diastolic heart failure is being admitted for hypoxic respiratory failure requiring more oxygen than his baseline and Covid 19 interstitial pneumonia. He has been getting better and was on 15 L/50% FiO2 on Ventimask, and continues to be stable at this. . He continues to be on dexamethasone 6mg day 7, remdesevir day 7, 1. COVID-19 PNA with acute/chronic respiratory failure: Continue dexamethasone 6mg day 7, remdesevir day 7. Also ceftriaxone/azithro day completed. Continue with inhalers and Tessalon Perles. Inflammatory markers have been trending down. Continue supplemental oxygen to maintain the saturation about 92. Prophylactic low-dose of Lovenox with 40 subcutaneous daily as d-dimer is less than 1000 2. HTN: And her home medication not contraindicated 3. CHF. Diastolic heart failure Not in any exacerbation. Volume status is okay. Input output monitoring. 2 g sodium restriction. 4. Copd: as above, steroids, respiratory treatments, supplemental oxygen, IS, acapella DVT prophylaxis PT, OT, for the disposition and therapy needs Likely home within the next 24-48 hours. VS,Fishbone, I+O VS, Fishbone, I+O Vital Signs Date Time Temp Pulse Resp B/P (MAP) Pulse Ox O2 Delivery O2 Flow Rate FiO2 08/01/20 09:00 89 Venturi Mask 15.0 50 08/01/20 08:00 96.7 80 22 166/80 (108) I&O- Last 24 Hours up to 6 AM 08/01/20 06:00 Intake Total 900 ml Output Total 400 ml Balance 500 ml NOEL ALVARENGA MD Aug 01, 2020 12:37
--- NOTE | 2020-08-01 13:17 | REP ---
INDICATION: hypoxia. COMPARISON: 07/26/2020. TECHNIQUE: SINGLE PORTABLE AP VIEW OF THE CHEST WAS PERFORMED. FINDINGS: Prominent cardiac silhouette is unchanged. Bibasilar infiltrates are essentially unchanged. The mediastinal silhouette is unchanged. IMPRESSION: Stable exam. <Electronically signed by Nathanael Davenport > 08/01/20 [id number]
[2020-08-01] MEDS ORDERED: PILL CUTTER 1 EACH XX PRN (16:45)
[2020-08-01] MEDS: REMDESIVIR 100 MG in NS 250 ML IV SCH (17:20)
[2020-08-01] MEDS: SODIUM CHLORIDE 0.9% INJ 10 ML SYR IV SCH (20:00)
[2020-08-01] MEDS: ATORVASTATIN 20 MG TAB PO SCH (20:49)
[2020-08-01] MEDS: zolPIDEM TARTRATE 5 MG TAB PO SCH (20:49)
[2020-08-01] MEDS: ENOXAPARIN 40MG/0.4ML SYRINGE (J1650 PER 10MG) SC SCH (20:49)
[2020-08-02] VITALS (10 sets, daily range): BP systolic 127–155; BP diastolic 64–75; O2SAT 91–98
[2020-08-02] MEDS: COMBIVENT RESPIMAT 100-20MCG INHALER 4GM INH SCH ×2 (03:45→08:00)
[2020-08-02] MEDS ORDERED: IPRATROPIUM 0.5MG/ALBUTEROL 2.5MG INH SOL UD 3ML (DUONEB) NEB SCH (08:00)
[2020-08-02] MEDS: SYMBICORT 160/4.5MCG INHALER 6GM INH SCH ×2 (08:29→20:14)
[2020-08-02] MEDS: ALBUTEROL SULFATE 2.5 MG/0.5 ML INH NEB SOLN NEB SCH ×3 (08:30→20:00)
[2020-08-02] MEDS: FUROSEMIDE 40 MG TAB PO SCH (09:00)
[2020-08-02 09:06] LABS: HEMATOCRIT 42.3 % (42.0-52.0); HEMOGLOBIN 13.2 g/dl (13.5-17.5); MEAN CORPUSCULAR HEMOGLOBIN 28.6 pg (27.0-33.0); MEAN CORPUSCULAR HGB CONC 31.2 g/dl (32.0-36.5); MEAN CORPUSCULAR VOLUME 91.6 fl (80.0-96.0); PLATELET COUNT, AUTOMATED 310 10^3/uL (150-450); RED BLOOD COUNT 4.62 10^6/uL (4.30-6.10); WHITE BLOOD COUNT 18.5 10^3/uL (4.0-10.0)
[2020-08-02 09:19] LABS: D-DIMER QUANT 741.86 ng/ml (<500)
[2020-08-02 09:24] LABS: BILIRUBIN,TOTAL 1.2 MG/DL (0.2-1.0); CREATININE FOR GFR 1.53 MG/DL (0.70-1.30); GLOMERULAR FILTRATION RATE 46.5 (>35); TOTAL PROTEIN 5.9 GM/DL (6.4-8.2)
[2020-08-02 09:25] LABS: C REACTIVE PROTEIN QUANTITATIV 0.72 MG/DL (0.00-0.30)
[2020-08-02] MEDS: dexameTHASONE 20MG/5ML VIAL (J1100 PER 1MG) IV SCH (09:39)
[2020-08-02] MEDS: SPIRONOLACTONE 25 MG TAB PO SCH (09:40)
[2020-08-02] MEDS: allopurinoL 100 MG TAB PO SCH (09:40)
[2020-08-02] MEDS: ASPIRIN 81 MG ENTERIC TAB PO SCH (09:40)
[2020-08-02] MEDS: LORATADINE 10 MG TAB PO SCH (09:40)
--- NOTE | 2020-08-02 14:52 | IPNPDOC ---
Date Seen The patient was seen on 08/02/20. Progress Note SUBJECTIVE: Mr. Salamanca was seen and examined at the bedside this morning. He is currently requiring 15L at 50%FiO2 on the Venturi mask. He states his breathing has improved although he requests albuterol nebulizer that he uses at home. He has a good appetite, no issues with eating and drinking, and is only minimally coughing. He denies any nausea, vomiting, diarrhea. OBJECTIVE VITAL SIGNS: see below GENERAL: Elderly man, alert and oriented, in no apparent distress, pleasant and conversant in full sentences. HEENT: PERRL, EOMI, Oral mucous membranes are moist without lesions. NECK: The patient has no noted JVD. No adenopathy is appreciated. No thyromegaly CHEST/LUNGS: Lungs are clear bilaterally without rhonchi, rales, or wheezes. There is no subcutaneous air appreciated. There is no tenderness to the chest wall. HEART:Regular rate and rhythm. No murmurs, rubs, or gallops are appreciated. Distal pulses are 2+. No carotid bruits appreciated. ABDOMEN: Soft, nontender, and nondistended. Bowel sounds are positive. No organomegaly is appreciated. No masses are appreciated. There are no peritoneal signs. There is no [place] sign. EXTREMITIES: No peripheral edema. There is no focal long bone tenderness or deformity. SKIN: The patients skin is warm and dry, without rashes or lesions. PSYCHIATRIC: AAO x 3, normal mood/affect NEUROLOGIC: The patient has 5/5 strength to the upper and lower extremities bilaterally. Sensation is intact throughout. Deep tendon reflexes are 2+ in all four extremities. There are no deficits to the cranial nerves. LABORATORY DATA, IMAGING STUDIES, MICROBIOLOGY: Please see below. ASSESSMENT AND PLAN: This is an 85-year-old male with history of COPD on 3-4 L of home oxygen, possible history of A. fib admitted for treatment of hypoxic respiratory failure secondary to Covid 19 pneumonia. This is symptom day 10. PROBLEMS: 1. Acute hypoxic respiratory failure secondary to Covid 19 pneumonia: -Continue dexamethasone, day 8 -Continue Remdesivir, day 8 -Continue symptomatic treatment: Inhalers, Tessalon Perles -White blood cell count increased from 9 to 18 today -Inflammatory markers: LDH up to 530, ferritin normal at 255, CRP down to 0.72, pro calcitonin less than 0.05, d-dimer down to 741, fibrinogen down to 389 2. Chronic diastolic congestive heart failure: Not currently in exacerbation. Patient appears to be euvolemic -Continue daily Lasix, 40 mg -Continue spironolactone -2 g per day sodium restriction -Strict input/output measurement 3. CKD 3: -Creatinine up today to 1.53, has been fluctuating during this admission it appears his baseline is around 1.2 4. History of COPD: Complicates care -Continue home inhalers 5. Questionable history of atrial fibrillation: -Heart rate has been regular since this admission -Continue home amiodarone DVT prophylaxis ordered?: Lovenox prophylactic dose 40 mg nightly DISPOSITION: Pending improvement in oxygenation VS, I&O, 24H, Fishbone Vital Signs/I&O Vital Signs Date Time Temp Pulse Resp B/P (MAP) Pulse Ox O2 Delivery O2 Flow Rate FiO2 08/02/20 06:30 97.4 88 20 155/72 (99) 90 Venturi Mask 15.0 50 I&O- Last 24 Hours up to 6 AM 08/02/20 06:00 Intake Total 960 ml Output Total 850 ml Balance 110 ml Laboratory Data Microbiology Microbiology 07/26/20 Blood Culture - Final, Complete NO GROWTH AFTER 5 DAYS 07/26/20 Respiratory Virus Panel (PCR) ([facility]) - Final, Complete SARS-CoV-2 (COVID 19) 07/26/20 Blood Culture - Final, Complete NO GROWTH AFTER 5 DAYS GME ATTESTATION GME ATTESTATION My faculty preceptor for this patient encounter was physically present during the encounter and was fully available. All aspects of the patient interview, examination, medical decision making process, and medical care plan development were reviewed and approved by the faculty preceptor. The faculty preceptor is aware and concurs with the plan as stated in the body of this note and will attest to such by his/her cosignature. ATTENDING NOTE I, Otto Slaughter, have independently examined this patient and performed my own physical exam, as well as reviewed the documentation and edited where necessary. I have discussed in detail with the resident / student the findings and plan of treatment as documented by the resident / student and edited their note. I agree with their findings and treatment plan and have edited their documentation. I will continue to follow the patient during this hospital stay. COOKIE HERNÁNDEZ MD Aug 02, 2020 08:50 OTTO SLAUGHTER MD Aug 02, 2020 16:19
[2020-08-02] MEDS: REMDESIVIR 100 MG in NS 250 ML IV SCH (18:17)
[2020-08-02] MEDS: SODIUM CHLORIDE 0.9% INJ 10 ML SYR IV SCH (19:00)
[2020-08-02] MEDS: ATORVASTATIN 20 MG TAB PO SCH (20:36)
[2020-08-02] MEDS: zolPIDEM TARTRATE 5 MG TAB PO SCH (20:36)
[2020-08-02] MEDS: ENOXAPARIN 40MG/0.4ML SYRINGE (J1650 PER 10MG) SC SCH (20:36)
[2020-08-03] VITALS (12 sets, daily range): BP systolic 133–134; BP diastolic 63–69; O2SAT 87–94
[2020-08-03] MEDS: ALBUTEROL SULFATE 2.5 MG/0.5 ML INH NEB SOLN NEB SCH ×4 (01:12→19:51)
[2020-08-03] MEDS: SYMBICORT 160/4.5MCG INHALER 6GM INH SCH ×2 (06:20→19:51)
[2020-08-03 07:32] LABS: HEMOGLOBIN 12.4 g/dl (13.5-17.5); MEAN CORPUSCULAR HEMOGLOBIN 28.7 pg (27.0-33.0); MEAN CORPUSCULAR HGB CONC 31.8 g/dl (32.0-36.5); MEAN CORPUSCULAR VOLUME 90.3 fl (80.0-96.0); PLATELET COUNT, AUTOMATED 261 10^3/uL (150-450); RED BLOOD COUNT 4.32 10^6/uL (4.30-6.10); WHITE BLOOD COUNT 15.8 10^3/uL (4.0-10.0)
[2020-08-03 08:01] LABS: ALBUMIN 2.8 GM/DL (3.2-5.2); BILIRUBIN,TOTAL 1.2 MG/DL (0.2-1.0); CALCIUM LEVEL 9.1 MG/DL (8.8-10.2); CREATININE FOR GFR 1.47 MG/DL (0.70-1.30); GLOMERULAR FILTRATION RATE 48.7 (>35); POTASSIUM SERUM 4.4 MEQ/L (3.5-5.1); TOTAL PROTEIN 5.1 GM/DL (6.4-8.2)
[2020-08-03 08:24] LABS: C REACTIVE PROTEIN QUANTITATIV 0.85 MG/DL (0.00-0.30)
[2020-08-03 08:30] LABS: D-DIMER QUANT 695.18 ng/ml (<500)
[2020-08-03] MEDS: FUROSEMIDE 40 MG TAB PO SCH (09:31)
[2020-08-03] MEDS: ASPIRIN 81 MG ENTERIC TAB PO SCH (09:31)
[2020-08-03] MEDS: dexameTHASONE 20MG/5ML VIAL (J1100 PER 1MG) IV SCH (09:31)
[2020-08-03] MEDS: allopurinoL 100 MG TAB PO SCH (09:31)
[2020-08-03] MEDS: LORATADINE 10 MG TAB PO SCH (09:31)
[2020-08-03] MEDS: AMIODARONE 200 MG TAB (PACERONE) PO SCH (09:31)
[2020-08-03] MEDS: SPIRONOLACTONE 25 MG TAB PO SCH (09:31)
--- NOTE | 2020-08-03 11:34 | IPNPDOC ---
Text Note Date of Service The patient was seen on 08/03/20. NOTE Subjective: Patient is an 85-year-old male with a PMHx of COPD / Chronic hypoxic respiratory failure (on 3-4L of [place] oxygen at home), A. fib, Diastolic CHF, DLP, Gout who presented to the emergency room with several day history of worsening shortness of breath. . She was found to be positive for COVID19 in the ER on 07/26/20. Patient was made to hospital service for further evaluation and treatment Patient was seen and examined at the bedside. Currently patient reports that his breathing is doing relatively better. Yesterday he was able to tolerate being off of the Ventimask and remain on nasal cannula at 8 L, however, overnight. He's been placed back on a Ventimask. We'll attempt the same today. He denies any chest pain. Reports a mild cough. Denies any nausea, vomiting, abdominal pain, diarrhea, or urinary discomfort. Objective: Vitals (See below) General: Lying in bed, appears, comfortable, AAOx3 HEENT: NC, AT CVS: +S1S2 Lungs: Fair air entry b/l, auscultation is without any rhonchi, rales or wheezing Abdomen: Soft, ND, NT, Obese Extremities: - Edema, - Calf tenderness Imaging: CXR 07/26: Prominent cardiac silhouette is unchanged. Bibasilar infiltrates are essentiall y unchanged. The mediastinal silhouette is unchanged. Stable exam. Assessment and plan: Acute on chronic hypoxic respiratory failure - likely 2/2 COVID19 pneumonia - Currently patient reports his breathing is doing relatively better - Patient is currently on a Ventimask Will attempt to transition to nasal cannula today - At baseline patient uses 3-4 L of nasal cannula oxygen - Inflammatory markers have shown some level of improvement - Imaging noted - c/w Dexamethasone and Remdesivir (Day#8) - c/w Incentive spirometry and symptomatic control Chronic COPD - No evidence of exacerbation at this time - TU with inhaled therapy as ordered Chronic diastolic congestive heart failure - Not currently in exacerbation / appears to be euvolemic - c/w Furosemide / Spironolactone DLP - c/w Atorvastatin and ASA 81 CKD3 - Cr baseline of 1.3-1.5 - Cr currently at baseline Questionable history of atrial fibrillation - EKG 07/26: Sinus rhythm - c/w Amiodarone - Not on full anticoagulation Gout - c/w Allopurinol DVT prophylaxis - c/w Lovenox 40 QD Disposition: - Awaiting clinical improvement; continuing to titrate down supplemental oxygen VS,Fishbone, I+O VS, Fishbone, I+O Laboratory Tests 08/03/20 06:21 Vital Signs Date Time Temp Pulse Resp B/P (MAP) Pulse Ox O2 Delivery O2 Flow Rate FiO2 08/03/20 07:31 91 Venturi Mask 15.0 08/03/20 05:00 50 08/03/20 05:00 96.9 92 20 133/69 (90) I&O- Last 24 Hours up to 6 AM 08/03/20 06:00 Intake Total 1340 ml Output Total 800 ml Balance 540 ml CHUY SLAUGHTER MD Aug 03, 2020 11:34
[2020-08-03] MEDS: REMDESIVIR 100 MG in NS 250 ML IV SCH (18:48)
[2020-08-03] MEDS: SODIUM CHLORIDE 0.9% INJ 10 ML SYR IV SCH (19:00)
[2020-08-03] MEDS: ATORVASTATIN 20 MG TAB PO SCH (21:11)
[2020-08-03] MEDS: zolPIDEM TARTRATE 5 MG TAB PO SCH (21:11)
[2020-08-03] MEDS: ENOXAPARIN 40MG/0.4ML SYRINGE (J1650 PER 10MG) SC SCH (21:12)
[2020-08-04] VITALS (9 sets, daily range): BP systolic 125–141; BP diastolic 61–71; O2SAT 89–94
[2020-08-04] MEDS: ALBUTEROL SULFATE 2.5 MG/0.5 ML INH NEB SOLN NEB SCH ×4 (01:04→20:00)
[2020-08-04] MEDS: SYMBICORT 160/4.5MCG INHALER 6GM INH SCH ×2 (07:43→20:00)
[2020-08-04] MEDS: SPIRONOLACTONE 25 MG TAB PO SCH (08:29)
[2020-08-04] MEDS: allopurinoL 100 MG TAB PO SCH (08:29)
[2020-08-04] MEDS: dexameTHASONE 20MG/5ML VIAL (J1100 PER 1MG) IV SCH (08:29)
[2020-08-04] MEDS: LORATADINE 10 MG TAB PO SCH (08:30)
[2020-08-04] MEDS: FUROSEMIDE 40 MG TAB PO SCH (08:30)
[2020-08-04] MEDS: ASPIRIN 81 MG ENTERIC TAB PO SCH (08:30)
[2020-08-04] MEDS: ACETAMINOPHEN TAB 650MG DOSE (2X325MG) PO PRN (09:40)
[2020-08-04 09:54] LABS: HEMATOCRIT 42.6 % (42.0-52.0); HEMOGLOBIN 13.3 g/dl (13.5-17.5); MEAN CORPUSCULAR HEMOGLOBIN 28.8 pg (27.0-33.0); MEAN CORPUSCULAR HGB CONC 31.2 g/dl (32.0-36.5); MEAN CORPUSCULAR VOLUME 92.2 fl (80.0-96.0); PLATELET COUNT, AUTOMATED 304 10^3/uL (150-450); RED BLOOD COUNT 4.62 10^6/uL (4.30-6.10); WHITE BLOOD COUNT 19.2 10^3/uL (4.0-10.0)
[2020-08-04 10:15] LABS: D-DIMER QUANT 621.68 ng/ml (<500)
[2020-08-04 10:23] LABS: ALBUMIN 3.1 GM/DL (3.2-5.2); BILIRUBIN,TOTAL 1.4 MG/DL (0.2-1.0); C REACTIVE PROTEIN QUANTITATIV 0.61 MG/DL (0.00-0.30); CALCIUM LEVEL 9.2 MG/DL (8.8-10.2); CREATININE FOR GFR 1.59 MG/DL (0.70-1.30); GLOMERULAR FILTRATION RATE 44.5 (>35); MAGNESIUM LEVEL 2.5 MG/DL (1.8-2.4); POTASSIUM SERUM 4.4 MEQ/L (3.5-5.1); TOTAL PROTEIN 5.7 GM/DL (6.4-8.2)
--- NOTE | 2020-08-04 11:04 | REP ---
INDICATION: Leukocytosis / Fever COMPARISON: 08/01/2020 TECHNIQUE: Portable AP view of the chest FINDINGS: Primarily bilateral lower lobe consolidations (left greater than right) and possible left pleural effusion appear somewhat more pronounced than prior examination. No pneumothorax. Mediastinum and cardiac silhouette are incompletely evaluated due to overlying opacities. IMPRESSION: Bilateral lower lobe opacities/consolidations (left greater than right) with possible left pleural effusion. Findings have progressively increased as compared with 07/26/2020. <Electronically signed by Chris Diaz > 08/04/20 1100
--- NOTE | 2020-08-04 11:39 | IPNPDOC ---
Text Note Date of Service The patient was seen on 08/04/20. NOTE Subjective: Patient is an 85-year-old male with a PMHx of COPD / Chronic hypoxic respiratory failure (on 3-4L of [place] oxygen at home), A. fib, Diastolic CHF, DLP, Gout who presented to the emergency room with several day history of worsening shortness of breath. . She was found to be positive for COVID19 in the ER on 07/26/20. Patient was made to hospital service for further evaluation and treatment Patient was seen and examined at the bedside. Currently patient reports that they feel relatively fine. They do report a cough that seems to have worsened. They deny any chest pain or palpitations. Has not experience nausea, abdominal pain, diarrhea, or urinary discomfort. Objective: Vitals (See below) General: Patient is lying on his side in bed, does not appear to be in any distress, Ventimask in place. He is awake, alert and oriented 3 HEENT: NC, AT CVS: +S1S2 Lungs: Air entry appears to be fair bilaterally without any auscultated rhonchi, crackles or wheezing Abdomen: Nondistended, nontender, soft but obese Extremities: No evidence of lower extremity edema, - Calf tenderness Imaging: CXR 07/26: Prominent cardiac silhouette is unchanged. Bibasilar infiltrates are essentia lly unchanged. The mediastinal silhouette is unchanged. Stable exam. Assessment and plan: Acute on chronic hypoxic respiratory failure - likely 2/2 COVID19 pneumonia; possibly 2/2 superimposed bacterial infection - This morning patient had reported an increased productive cough - Patient is currently on a Ventimask Will attempt to transition to nasal cannula today - At baseline patient uses 3-4 L of nasal cannula oxygen - Inflammatory markers have shown some level of improvement - Imaging noted - Will check sputum cultures - c/w Dexamethasone and Remdesivir (Day#8) - Will start Cefepime and Doxycycline (Day #1) - c/w Incentive spirometry and symptomatic control Leukocytosis / Fever - CXR 08/04: Bilateral lower lobe opacities/consolidations (left greater than ri ght) with possible left pleural effusion. Findings have progressively increased as compared with 07/26/2020. - Will consider CT chest if aerosolization can be avoided - Will check sputum cultures/ UA - See antibiotics (Above) Chronic COPD - No evidence of exacerbation at this time - c/w inhaled therapy as ordered Chronic diastolic congestive heart failure - Not currently in exacerbation / appears to be euvolemic - Will stop Furosemide / Spironolactone (re: elevated Cr) DLP - c/w Atorvastatin and ASA 81 CKD3 - Cr baseline of 1.3-1.5 - Cr slightly above baseline - Will hold Furosemide Questionable history of atrial fibrillation - EKG 07/26: Sinus rhythm - c/w Amiodarone - Not on full anticoagulation Gout - c/w Allopurinol DVT prophylaxis - c/w Lovenox 40 QD Disposition: - Awaiting clinical improvement; continuing to titrate down supplemental oxygen VS,Fishbone, I+O VS, Fishbone, I+O Laboratory Tests 08/04/20 08:36 Vital Signs Date Time Temp Pulse Resp B/P (MAP) Pulse Ox O2 Delivery O2 Flow Rate FiO2 08/04/20 11:04 94 Venturi Mask 15.0 50 08/04/20 09:43 96.8 08/04/20 08:00 94 24 125/61 (82) I&O- Last 24 Hours up to 6 AM 08/04/20 06:00 Intake Total 1440 ml Output Total 850 ml Balance 590 ml CHUY SLAUGHTER MD Aug 04, 2020 11:39
[2020-08-04] MEDS ORDERED: CEFEPIME HCL 1 GM in D5W MINI-BAG PLUS 50 ML IV SCH (11:45)
[2020-08-04] MEDS ORDERED: cefTRIAXone SOD 1 GM in D5W MINI-BAG PLUS 50 ML IV SCH (11:45)
[2020-08-04] MEDS: DOXYCYCLINE HYCLATE 100 MG in D5W MINI-BAG PLUS 100 ML IV SCH ×2 (12:26→23:02)
[2020-08-04] MEDS: CEFEPIME HCL 2 GM in D5W MINI-BAG PLUS 50 ML IV SCH (13:58)
[2020-08-04] MEDS: REMDESIVIR 100 MG in NS 250 ML IV SCH (17:39)
[2020-08-04] MEDS: SODIUM CHLORIDE 0.9% INJ 10 ML SYR IV SCH ×2 (18:18→20:00)
[2020-08-04] MEDS: ATORVASTATIN 20 MG TAB PO SCH (20:24)
[2020-08-04] MEDS: ENOXAPARIN 40MG/0.4ML SYRINGE (J1650 PER 10MG) SC SCH (20:24)
[2020-08-04] MEDS: zolPIDEM TARTRATE 5 MG TAB PO SCH (20:24)
[2020-08-05] MEDS: ALBUTEROL SULFATE 2.5 MG/0.5 ML INH NEB SOLN NEB SCH ×4 (02:00→20:00)
[2020-08-05] MEDS: CEFEPIME HCL 2 GM in D5W MINI-BAG PLUS 50 ML IV SCH ×2 (02:10→13:31)
[2020-08-05 03:51] VITALS: BP 124/70
[2020-08-05 07:24] LABS: HEMATOCRIT 39.7 % (42.0-52.0); HEMOGLOBIN 12.5 g/dl (13.5-17.5); MEAN CORPUSCULAR HEMOGLOBIN 28.7 pg (27.0-33.0); MEAN CORPUSCULAR HGB CONC 31.5 g/dl (32.0-36.5); MEAN CORPUSCULAR VOLUME 91.3 fl (80.0-96.0); PLATELET COUNT, AUTOMATED 258 10^3/uL (150-450); RED BLOOD COUNT 4.35 10^6/uL (4.30-6.10); WHITE BLOOD COUNT 15.8 10^3/uL (4.0-10.0)
[2020-08-05 07:40] VITALS: BP 140/62; O2SAT 92
[2020-08-05 07:40] LABS: D-DIMER QUANT 752.52 ng/ml (<500)
[2020-08-05 07:55] LABS: ALBUMIN 2.7 GM/DL (3.2-5.2); BILIRUBIN,TOTAL 1.2 MG/DL (0.2-1.0); C REACTIVE PROTEIN QUANTITATIV 0.37 MG/DL (0.00-0.30); CREATININE FOR GFR 1.64 MG/DL (0.70-1.30); GLOMERULAR FILTRATION RATE 42.9 (>35); MAGNESIUM LEVEL 2.3 MG/DL (1.8-2.4); POTASSIUM SERUM 4.5 MEQ/L (3.5-5.1); TOTAL PROTEIN 5.4 GM/DL (6.4-8.2)
[2020-08-05] MEDS: SYMBICORT 160/4.5MCG INHALER 6GM INH SCH ×2 (08:42→20:42)
[2020-08-05] MEDS: dexameTHASONE 20MG/5ML VIAL (J1100 PER 1MG) IV SCH (08:47)
[2020-08-05] MEDS: LORATADINE 10 MG TAB PO SCH (08:48)
[2020-08-05] MEDS: allopurinoL 100 MG TAB PO SCH (08:48)
[2020-08-05] MEDS: ASPIRIN 81 MG ENTERIC TAB PO SCH (08:48)
[2020-08-05] MEDS: AMIODARONE 200 MG TAB (PACERONE) PO SCH (08:48)
[2020-08-05] MEDS: DOXYCYCLINE HYCLATE 100 MG in D5W MINI-BAG PLUS 100 ML IV SCH (11:11)
[2020-08-05 15:41] VITALS: BP 142/66
--- NOTE | 2020-08-05 17:30 | IPNPDOC ---
Date Seen The patient was seen on 08/05/20. Progress Note SUBJECTIVE: 85-year-old male with a PMHx of COPD / Chronic hypoxic respiratory failure (on 3-4L of [place] oxygen at home), A. fib, Diastolic CHF, DLP, Gout who presented to the emergency room with several day history of worsening shortness of breath, COVID19 + on 07/26/20. OBJECTIVE PHYSICAL EXAMINATION: VITAL SIGNS: please see below General: NAD, comfortable HEENT: PERRLA, EOMI, sclerae clear Neck: supple, normal ROM, no JVD Respiratory: lungs CTAB, no wheeze, no rales, no crackles CVS: RRR, normal S1, S2, no murmurs Abdo: soft, no masses, no hepatosplenomegaly, BS+, no rebound tenderness Extremities: no edema, pulses 2+ MSK: no joint deformities, normal ROM Neuro: no focal neuro deficits, moving all 4 extremities, CN2-12 intact. Strength 5/5 in all 4 extremities. No nystagmus. Psych: calm, cooperative, AAO x 3 LABORATORY DATA, IMAGING STUDIES, MICROBIOLOGY: Please see below. CXR (08/04/20): Bilateral lower lobe opacities/consolidations (left greater than right) with possible left pleural effusion. Findings have progressively increased as compared with 07/26/2020. DVT prophylaxis ordered?: lovenox 40 mg qdaily PROBLEMS: Acute on chronic hypoxic respiratory failure - likely 2/2 COVID19 pneumonia; possibly 2/2 superimposed bacterial infection - Venti mask 15 LPM, 50%. Unable to transition to nasal cannula today. - At baseline patient uses 3-4 L of nasal cannula oxygen - Inflammatory markers have shown some level of improvement, CRP trending down - Imaging noted - Will check sputum cultures - c/w Dexamethasone and Remdesivir (Day#9) - Will start Cefepime and Doxycycline (Day #2) - c/w Incentive spirometry and symptomatic control Leukocytosis / Fever - CXR 08/04: Bilateral lower lobe opacities/consolidations (left greater than rig ht) with possible left pleural effusion. Findings have progressively increased as compared with 07/26/2020. - Will consider CT chest if aerosolization can be avoided - Will check sputum cultures/ UA - continue cefepime, doxycycline Chronic COPD - No evidence of exacerbation at this time - c/w inhaled therapy as ordered Chronic diastolic congestive heart failure - Not currently in exacerbation / appears to be euvolemic - holding furosemide, spironolactone DLP - c/w Atorvastatin and ASA 81 CKD3 - Cr baseline of 1.3-1.5 - Cr slightly above baseline - Will hold Furosemide Questionable history of atrial fibrillation - EKG 07/26: Sinus rhythm - c/w Amiodarone - Not on full anticoagulation Gout - c/w Allopurinol DVT prophylaxis - c/w Lovenox 40 QD Dispo - pending clinical improvement - I spoke to patient's daughter, Sulema Mckeon at [phone] and updated her as to progress, as well as answered all questions in detail. VS, I&O, 24H, Fishbone Vital Signs/I&O Vital Signs Date Time Temp Pulse Resp B/P (MAP) Pulse Ox O2 Delivery O2 Flow Rate FiO2 08/05/20 15:41 97.9 88 19 142/66 (91) 94 Venturi Mask 15.0 50 I&O- Last 24 Hours up to 6 AM 08/05/20 06:00 Intake Total 1320 ml Output Total 500 ml Balance 820 ml Laboratory Data 24H LABS Laboratory Tests 2 08/05/20 07:12: Nucleated Red Blood Cells % (auto) 0.3H, Fibrinogen 332, D-Dimer, Quantitative 752.52H, Anion Gap 6L, Glomerular Filtration Rate 42.9, Calcium Level 9.0, Magnesium Level 2.3, Ferritin 204, Total Bilirubin 1.2H, Aspartate Amino Transf (AST/SGOT) 15, Alanine Aminotransferase (ALT/SGPT) 29, Alkaline Phosphatase 67, C-Reactive Protein, Quantitative 0.37H, Total Protein 5.4L, Albumin 2.7L, Albumin/Globulin Ratio 1.0, Procalcitonin 0.06 CBC/BMP Laboratory Tests 08/05/20 07:12 Microbiology Microbiology 07/26/20 Blood Culture - Final, Complete NO GROWTH AFTER 5 DAYS 07/26/20 Respiratory Virus Panel (PCR) ([facility]) - Final, Complete SARS-CoV-2 (COVID 19) 07/26/20 Blood Culture - Final, Complete NO GROWTH AFTER 5 DAYS MIL WHIPPLE MD Aug 05, 2020 17:30
[2020-08-05 20:31] VITALS: BP 124/61
[2020-08-05] MEDS: zolPIDEM TARTRATE 5 MG TAB PO SCH (20:38)
[2020-08-05] MEDS: ATORVASTATIN 20 MG TAB PO SCH (20:38)
[2020-08-05] MEDS: ENOXAPARIN 40MG/0.4ML SYRINGE (J1650 PER 10MG) SC SCH (20:38)
[2020-08-06] VITALS (20 sets, daily range): BP systolic 118–125; BP diastolic 56–75; O2SAT 86–96
[2020-08-06] MEDS: DOXYCYCLINE HYCLATE 100 MG in D5W MINI-BAG PLUS 100 ML IV SCH ×3 (00:09→23:55)
[2020-08-06] MEDS: CEFEPIME HCL 2 GM in D5W MINI-BAG PLUS 50 ML IV SCH ×2 (01:45→13:43)
[2020-08-06] MEDS: ALBUTEROL SULFATE 2.5 MG/0.5 ML INH NEB SOLN NEB SCH ×4 (01:50→13:58)
[2020-08-06 08:04] LABS: HEMATOCRIT 38.5 % (42.0-52.0); HEMOGLOBIN 12.4 g/dl (13.5-17.5); MEAN CORPUSCULAR HEMOGLOBIN 29.3 pg (27.0-33.0); MEAN CORPUSCULAR HGB CONC 32.2 g/dl (32.0-36.5); PLATELET COUNT, AUTOMATED 240 10^3/uL (150-450); RED BLOOD COUNT 4.23 10^6/uL (4.30-6.10); WHITE BLOOD COUNT 19.2 10^3/uL (4.0-10.0)
[2020-08-06] MEDS: SYMBICORT 160/4.5MCG INHALER 6GM INH SCH ×2 (08:14→20:21)
[2020-08-06 08:18] LABS: D-DIMER QUANT 745.42 ng/ml (<500)
[2020-08-06 08:33] LABS: ALBUMIN 2.7 GM/DL (3.2-5.2); BILIRUBIN,TOTAL 1.3 MG/DL (0.2-1.0); C REACTIVE PROTEIN QUANTITATIV 0.3 MG/DL (0.00-0.30); CALCIUM LEVEL 8.8 MG/DL (8.8-10.2); CREATININE FOR GFR 1.51 MG/DL (0.70-1.30); GLOMERULAR FILTRATION RATE 47.2 (>35); MAGNESIUM LEVEL 2.2 MG/DL (1.8-2.4); POTASSIUM SERUM 4.7 MEQ/L (3.5-5.1)
--- NOTE | 2020-08-06 08:42 | REP ---
INDICATION: pleural effusion. COMPARISON: Comparison portable chest x-ray August 04, 2020. TECHNIQUE: Portable upright AP chest radiograph. FINDINGS: There has been some improvement in aeration in the pleural angle blunting and pleural thickening seen at the left base in the interval since the 04 August 2020 study. Interstitial consolidation persists here and an infiltrate is again seen in the right base unchanged. There is linear fibrotic change in the right upper lung zone. Mild cardiomegaly is observed. No new infiltrate is seen. Pleural thickening is again noted on the left.. IMPRESSION: Improved left pleural effusion. Bilateral interstitial infiltrates persist.. <Electronically signed by Bora Ruvalcaba > 08/06/20 [id number]
[2020-08-06] MEDS: dexameTHASONE 20MG/5ML VIAL (J1100 PER 1MG) IV SCH (09:50)
[2020-08-06] MEDS: LORATADINE 10 MG TAB PO SCH (09:51)
[2020-08-06] MEDS: allopurinoL 100 MG TAB PO SCH (09:51)
[2020-08-06] MEDS: ASPIRIN 81 MG ENTERIC TAB PO SCH (09:51)
--- NOTE | 2020-08-06 14:41 | IPNPDOC ---
Date Seen The patient was seen on 08/06/20. Progress Note SUBJECTIVE: 85-year-old male with a PMHx of COPD / Chronic hypoxic respiratory failure (on 3-4L of [place] oxygen at home), A. fib, Diastolic CHF, DLP, Gout who presented to the emergency room with several day history of worsening shortness of breath, COVID19 + on 07/26/20. OBJECTIVE PHYSICAL EXAMINATION: VITAL SIGNS: please see below General: NAD, comfortable HEENT: PERRLA, EOMI, sclerae clear Neck: supple, normal ROM, no JVD Respiratory: lungs CTAB, no wheeze, no rales, no crackles CVS: RRR, normal S1, S2, no murmurs Abdo: soft, no masses, no hepatosplenomegaly, BS+, no rebound tenderness Extremities: no edema, pulses 2+ MSK: no joint deformities, normal ROM Neuro: no focal neuro deficits, moving all 4 extremities, CN2-12 intact. Strength 5/5 in all 4 extremities. No nystagmus. Psych: calm, cooperative, AAO x 3 LABORATORY DATA, IMAGING STUDIES, MICROBIOLOGY: Please see below. CXR (08/06/20): There has been some improvement in aeration in the pleural angle blunting and pleural thickening seen at the left base in the interval since the 04 August 2020 study. Interstitial consolidation persists here and an infiltrate is again seen in the right base unchanged. There is linear fibrotic change in the right upper lung zone. Mild cardiomegaly is observed. No new infiltrate is seen. Pleural thickening is again noted on the left.. IMPRESSION: Improved left pleural effusion. Bilateral interstitial infiltrates persist. CXR (08/04/20): Bilateral lower lobe opacities/consolidations (left greater than right) with possible left pleural effusion. Findings have progressively increased as compared with 07/26/2020. DVT prophylaxis ordered?: lovenox 40 mg qdaily PROBLEMS: Acute on chronic hypoxic respiratory failure - likely 2/2 COVID19 pneumonia; possibly 2/2 superimposed bacterial infection - Venti mask 15 LPM, 50%. - At baseline patient uses 3-4 L of nasal cannula oxygen - Inflammatory markers have shown some level of improvement, CRP trending down - Will check sputum cultures - c/w Dexamethasone (Day#10). Completed remdesivir (10 days) - Cefepime and Doxycycline (Day #3) - c/w Incentive spirometry and symptomatic control Leukocytosis / Fever - has been afebrile, procal negative. Leukocytosis now concealed by dexamethasone - CXR 08/06/20 shows improvement in size of L pleural effusion, bilateral infi ltrates persist - d/w Dr. Guerrero on 08/06/20, as size of effusion has improved, and no increase in O2 requirement, no further intervention at this time. Defer CT chest. - UA clean - continue cefepime, doxycycline Chronic COPD - No evidence of exacerbation at this time - c/w inhaled therapy as ordered Chronic diastolic congestive heart failure - Not currently in exacerbation / appears to be euvolemic - holding furosemide, spironolactone DLP - c/w Atorvastatin and ASA 81 CKD3 - Cr baseline of 1.3-1.5 - Cr slightly above baseline - Will hold Furosemide Questionable history of atrial fibrillation - EKG 07/26: Sinus rhythm - c/w Amiodarone - Not on full anticoagulation Gout - c/w Allopurinol DVT prophylaxis - c/w Lovenox 40 QD Dispo - pending clinical improvement - PT/OT recommending rehab - I spoke to patient's daughter, Sulema Mckeon at [phone] and updated her as to progress, as well as answered all questions in detail. VS, I&O, 24H, Fishbone Vital Signs/I&O Vital Signs Date Time Temp Pulse Resp B/P (MAP) Pulse Ox O2 Delivery O2 Flow Rate FiO2 08/06/20 11:00 94 Venturi Mask 15.0 50 08/06/20 08:24 96.7 84 18 125/60 (81) I&O- Last 24 Hours up to 6 AM 08/06/20 06:00 Intake Total 1080 ml Balance 1080 ml Laboratory Data 24H LABS Laboratory Tests 2 08/06/20 07:26: Nucleated Red Blood Cells % (auto) 0.3H, Fibrinogen 296, D-Dimer, Quantitative 745.42H, Anion Gap 7L, Glomerular Filtration Rate 47.2, Calcium Level 8.8, Magnesium Level 2.2, Ferritin 204, Total Bilirubin 1.3H, Aspartate Amino Transf (AST/SGOT) 17, Alanine Aminotransferase (ALT/SGPT) 30, Alkaline Phosphatase 68, C-Reactive Protein, Quantitative 0.30, Total Protein 5.0L, Albumin 2.7L, Albumin/Globulin Ratio 1.2, Procalcitonin 0.07 CBC/BMP Laboratory Tests 08/06/20 07:26 MIL WHIPPLE MD Aug 06, 2020 14:41
[2020-08-06] MEDS: ENOXAPARIN 40MG/0.4ML SYRINGE (J1650 PER 10MG) SC SCH (20:38)
[2020-08-06] MEDS: ATORVASTATIN 20 MG TAB PO SCH (20:39)
[2020-08-06] MEDS: ACETAMINOPHEN TAB 650MG DOSE (2X325MG) PO PRN (20:39)
[2020-08-06] MEDS: zolPIDEM TARTRATE 5 MG TAB PO SCH (20:39)
[2020-08-07] VITALS (24 sets, daily range): BP systolic 117–135; BP diastolic 58–61; O2SAT 83–96
[2020-08-07] MEDS: CEFEPIME HCL 2 GM in D5W MINI-BAG PLUS 50 ML IV SCH (01:21)
[2020-08-07] MEDS: ALBUTEROL SULFATE 2.5 MG/0.5 ML INH NEB SOLN NEB SCH ×4 (02:00→20:37)
[2020-08-07 07:47] LABS: HEMATOCRIT 37.2 % (42.0-52.0); HEMOGLOBIN 11.9 g/dl (13.5-17.5); MEAN CORPUSCULAR HEMOGLOBIN 28.9 pg (27.0-33.0); MEAN CORPUSCULAR VOLUME 90.3 fl (80.0-96.0); PLATELET COUNT, AUTOMATED 232 10^3/uL (150-450); RED BLOOD COUNT 4.12 10^6/uL (4.30-6.10); WHITE BLOOD COUNT 18.6 10^3/uL (4.0-10.0)
[2020-08-07 08:03] LABS: D-DIMER QUANT 716.83 ng/ml (<500)
[2020-08-07] MEDS: SYMBICORT 160/4.5MCG INHALER 6GM INH SCH ×2 (08:11→20:37)
[2020-08-07 08:20] LABS: ALBUMIN 2.6 GM/DL (3.2-5.2); BILIRUBIN,TOTAL 1.3 MG/DL (0.2-1.0); C REACTIVE PROTEIN QUANTITATIV 0.3 MG/DL (0.00-0.30); CALCIUM LEVEL 8.8 MG/DL (8.8-10.2); CREATININE FOR GFR 1.45 MG/DL (0.70-1.30); GLOMERULAR FILTRATION RATE 49.5 (>35); MAGNESIUM LEVEL 2.2 MG/DL (1.8-2.4); POTASSIUM SERUM 4.7 MEQ/L (3.5-5.1); TOTAL PROTEIN 4.9 GM/DL (6.4-8.2)
[2020-08-07] MEDS: ASPIRIN 81 MG ENTERIC TAB PO SCH (10:06)
[2020-08-07] MEDS: LORATADINE 10 MG TAB PO SCH (10:06)
[2020-08-07] MEDS: allopurinoL 100 MG TAB PO SCH (10:06)
[2020-08-07] MEDS: dexameTHASONE 20MG/5ML VIAL (J1100 PER 1MG) IV SCH (10:07)
[2020-08-07] MEDS: AMIODARONE 200 MG TAB (PACERONE) PO SCH (10:07)
--- NOTE | 2020-08-07 11:31 | IPNPDOC ---
Date Seen The patient was seen on 08/07/20. Progress Note SUBJECTIVE: 85-year-old male with a PMHx of COPD / Chronic hypoxic respiratory failure (on 3-4L of [place] oxygen at home), A. fib, Diastolic CHF, DLP, Gout who presented to the emergency room with several day history of worsening shortness of breath, COVID19 + on 07/26/20. Patient seen and examined at bedside. A sitting upright in chair on nasal cannula at 10 L/m eating breakfast, has good appetite. Denies chest measures with nausea, vomiting, diarrhea, fevers or chills. OBJECTIVE PHYSICAL EXAMINATION: VITAL SIGNS: please see below General: NAD, comfortable HEENT: PERRLA, EOMI, sclerae clear Neck: supple, normal ROM, no JVD Respiratory: lungs CTAB, no wheeze, no rales, no crackles CVS: RRR, normal S1, S2, no murmurs Abdo: soft, no masses, no hepatosplenomegaly, BS+, no rebound tenderness Extremities: no edema, pulses 2+ MSK: no joint deformities, normal ROM Neuro: no focal neuro deficits, moving all 4 extremities, CN2-12 intact. Strength 5/5 in all 4 extremities. No nystagmus. Psych: calm, cooperative, AAO x 3 LABORATORY DATA, IMAGING STUDIES, MICROBIOLOGY: Please see below. CXR (08/04/20): Bilateral lower lobe opacities/consolidations (left greater than right) with possible left pleural effusion. Findings have progressively increased as compared with 07/26/2020. DVT prophylaxis ordered?: lovenox 40 mg qdaily PROBLEMS: Acute on chronic hypoxic respiratory failure - likely 2/2 COVID19 pneumonia; possibly 2/2 superimposed bacterial infection -Patient on Ventimask at 50 L at 50% FiO2 overnight, tolerated nasal cannula at 10 L while eating breakfast. - At baseline patient uses 3-4 L of nasal cannula oxygen - Inflammatory markers have shown some level of improvement, CRP trending down - Imaging noted - pleural effusion. The left side has improved, discussed with Dr. Guerrero, lasers, no pleural effusion or further workup indicated. - Will check sputum cultures - c/w Dexamethasone and Remdesivir (Day#9) - DC cefepime (3 days) - c/w Doxycycline (Day #3) - c/w Incentive spirometry and symptomatic control Leukocytosis / Fever - CXR 08/04: Bilateral lower lobe opacities/consolidations (left greater than right) with possible left pleural effusion. Findings have progressively increased as compared with 07/26/2020. - Repeat chest x-ray showed resolution of pleural effusion. Discuss with Dr. Guerrero for further workup indicated. Chronic COPD - No evidence of exacerbation at this time - c/w inhaled therapy as ordered Chronic diastolic congestive heart failure - Not currently in exacerbation / appears to be euvolemic - holding furosemide, spironolactone DLP - c/w Atorvastatin and ASA 81 CKD3 - Cr baseline of 1.3-1.5 - Cr slightly above baseline, trending down - Will hold Furosemide Questionable history of atrial fibrillation - EKG 07/26: Sinus rhythm - c/w Amiodarone - Not on full anticoagulation Gout - c/w Allopurinol DVT prophylaxis - c/w Lovenox 40 QD Dispo - pending clinical improvement, per physical therapy will likely require rehabilitation after discharge. - I spoke to patient's daughter, Sulema Mckeon at [phone] and updated her as to progress, as well as answered all questions in detail. VS, I&O, 24H, Fishbone Vital Signs/I&O Vital Signs Date Time Temp Pulse Resp B/P (MAP) Pulse Ox O2 Delivery O2 Flow Rate FiO2 08/07/20 08:13 92 Venturi Mask 15.0 40 08/07/20 08:00 96.3 79 22 135/61 (85) I&O- Last 24 Hours up to 6 AM 08/07/20 06:00 Intake Total 960 ml Output Total 300 ml Balance 660 ml Laboratory Data 24H LABS Laboratory Tests 2 08/07/20 06:15: Nucleated Red Blood Cells % (auto) 0.2H, Fibrinogen 300, D-Dimer, Quantitative 716.83H, Anion Gap 9, Glomerular Filtration Rate 49.5, Calcium Level 8.8, Magnesium Level 2.2, Ferritin 225, Total Bilirubin 1.3H, Aspartate Amino Transf (AST/SGOT) 19, Alanine Aminotransferase (ALT/SGPT) 30, Alkaline Phosphatase 67, C-Reactive Protein, Quantitative 0.30, Total Protein 4.9L, Albumin 2.6L, Albumin/Globulin Ratio 1.1, Procalcitonin 0.07 CBC/BMP Laboratory Tests 08/07/20 06:15 Microbiology Microbiology 08/06/20 Gram Stain - Final, Resulted 08/06/20 Sputum Culture, Resulted Pending MIL WHIPPLE MD Aug 07, 2020 11:31
[2020-08-07] MEDS: DOXYCYCLINE HYCLATE 100 MG in D5W MINI-BAG PLUS 100 ML IV SCH (13:45)
--- NOTE | 2020-08-07 16:27 | REP ---
INDICATION: elevated bilirubin. COMPARISON: Comparison is made with images from chest CT study dated February 28, 2015.. TECHNIQUE: Right upper quadrant sonography. FINDINGS: Scanning through the right upper quadrant of the abdomen demonstrates a normal sized, thin-walled gallbladder without evidence of stone or polyp. Common bile duct is normal measuring 0.3 cm in greatest diameter. No focal liver lesion is seen. Liver size is normal. Liver texture is somewhat coarse. 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 The pancreas is largely obscured by bowel gas.. There is no evidence of ascites. The right kidney measures 11.1 x 5.5 x 5.7 cm. There are 2 right renal cysts 1 large measuring 9.0 x 7.0 x 8.1 cm. The other small cyst measures 0.9 cm in greatest diameter. Both are sonographically simple. IMPRESSION: Right renal cysts including 1 large renal cyst. This is visible on prior CT study from 2015. Somewhat coarse liver texture. 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 Otherwise negative right upper quadrant sonography.. <Electronically signed by Bora Ruvalcaba > 08/07/20 [id number]
[2020-08-07] MEDS: ATORVASTATIN 20 MG TAB PO SCH (21:18)
[2020-08-07] MEDS: zolPIDEM TARTRATE 5 MG TAB PO SCH (21:18)
[2020-08-07] MEDS: ENOXAPARIN 40MG/0.4ML SYRINGE (J1650 PER 10MG) SC SCH (21:18)
[2020-08-07] MEDS: DOXYCYCLINE HYCLATE 100MG TABLET PO SCH (21:18)
[2020-08-08] VITALS (26 sets, daily range): BP systolic 131–144; BP diastolic 62–82; O2SAT 81–96
[2020-08-08] MEDS: ALBUTEROL SULFATE 2.5 MG/0.5 ML INH NEB SOLN NEB SCH ×4 (02:08→19:54)
[2020-08-08] MEDS: SYMBICORT 160/4.5MCG INHALER 6GM INH SCH ×2 (07:26→19:54)
[2020-08-08 09:07] LABS: ALBUMIN 2.7 GM/DL (3.2-5.2); BILIRUBIN,TOTAL 1.3 MG/DL (0.2-1.0); C REACTIVE PROTEIN QUANTITATIV 0.3 MG/DL (0.00-0.30); CALCIUM LEVEL 9.3 MG/DL (8.8-10.2); CREATININE FOR GFR 1.46 MG/DL (0.70-1.30); GLOMERULAR FILTRATION RATE 49.1 (>35); MAGNESIUM LEVEL 2.4 MG/DL (1.8-2.4); POTASSIUM SERUM 4.9 MEQ/L (3.5-5.1); TOTAL PROTEIN 5.2 GM/DL (6.4-8.2)
[2020-08-08] MEDS: LORATADINE 10 MG TAB PO SCH (10:03)
[2020-08-08] MEDS: allopurinoL 100 MG TAB PO SCH (10:03)
[2020-08-08] MEDS: dexameTHASONE 20MG/5ML VIAL (J1100 PER 1MG) IV SCH (10:03)
[2020-08-08] MEDS: ASPIRIN 81 MG ENTERIC TAB PO SCH (10:03)
[2020-08-08] MEDS: DOXYCYCLINE HYCLATE 100MG TABLET PO SCH ×2 (10:03→21:07)
[2020-08-08 10:32] LABS: HEMATOCRIT 40.5 % (42.0-52.0); HEMOGLOBIN 13.1 g/dl (13.5-17.5); MEAN CORPUSCULAR HEMOGLOBIN 29.6 pg (27.0-33.0); MEAN CORPUSCULAR HGB CONC 32.3 g/dl (32.0-36.5); MEAN CORPUSCULAR VOLUME 91.4 fl (80.0-96.0); PLATELET COUNT, AUTOMATED 262 10^3/uL (150-450); RED BLOOD COUNT 4.43 10^6/uL (4.30-6.10); WHITE BLOOD COUNT 22.8 10^3/uL (4.0-10.0)
[2020-08-08 10:46] LABS: D-DIMER QUANT 825.87 ng/ml (<500)
[2020-08-08 11:15] LABS: LYMPHOCYTES 3 % (16-44); METAMYELOCYTES 2 % (0-0); MONOCYTES 5 % (0-5); NEUTROPHILS 89 % (28-66); PLATELET ESTIMATE NORMAL (NORMAL)
[2020-08-08 11:17] LABS: ANISOCYTOSIS 1+
--- NOTE | 2020-08-08 14:06 | IPNPDOC ---
Date Seen The patient was seen on 08/08/20. Progress Note SUBJECTIVE: 85-year-old male with a PMHx of COPD / Chronic hypoxic respiratory failure (on 3-4L of [place] oxygen at home), A. fib, Diastolic CHF, DLP, Gout who presented to the emergency room with several day history of worsening shortness of breath, COVID19 + on 07/26/20. Patient seen and examined at bedside. Denies chest pain, seizures of breath, nausea, vomiting, diarrhea, fevers or chills. Continues to be on Ventimask. Lying on the side appears comfortable. OBJECTIVE PHYSICAL EXAMINATION: VITAL SIGNS: please see below General: NAD, comfortable HEENT: PERRLA, EOMI, sclerae clear Neck: supple, normal ROM, no JVD Respiratory: lungs CTAB, no wheeze, no rales, no crackles CVS: RRR, normal S1, S2, no murmurs Abdo: soft, no masses, no hepatosplenomegaly, BS+, no rebound tenderness Extremities: no edema, pulses 2+ MSK: no joint deformities, normal ROM Neuro: no focal neuro deficits, moving all 4 extremities, CN2-12 intact. Strength 5/5 in all 4 extremities. No nystagmus. Psych: calm, cooperative, AAO x 3 LABORATORY DATA, IMAGING STUDIES, MICROBIOLOGY: Please see below. Liver US (08/07/20): Right renal cysts including 1 large renal cyst. This is visible on prior CT study from 2014. Somewhat coarse liver texture. 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 Otherwise negative right upper quadrant sonography. CXR (08/04/20): Bilateral lower lobe opacities/consolidations (left greater than right) with possible left pleural effusion. Findings have progressively increased as compared with 07/26/2020. DVT prophylaxis ordered?: lovenox 40 mg qdaily PROBLEMS: Acute on chronic hypoxic respiratory failure - likely 2/2 COVID19 pneumonia; possibly 2/2 superimposed bacterial infection -Patient on Ventimask at 50 L at 50% FiO2 overnight, tolerated nasal cannula at 10 L while eating breakfast. - At baseline patient uses 3-4 L of nasal cannula oxygen - Inflammatory markers have shown some level of improvement, CRP trending down - Imaging noted - pleural effusion. The left side has improved, discussed with Dr. Guerrero, lasers, no pleural effusion or further workup indicated. - Will check sputum cultures - c/w Dexamethasone and Remdesivir (Day#10) - DC cefepime (3 days) - c/w Doxycycline (Day #4) - c/w Incentive spirometry and symptomatic control Leukocytosis / Fever - CXR 08/04: Bilateral lower lobe opacities/consolidations (left greater than right) with possible left pleural effusion. Findings have progressively increased as compared with 07/26/2020. - Repeat chest x-ray showed resolution of pleural effusion. Discuss with Dr. Guerrero for further workup indicated. Chronic COPD - No evidence of exacerbation at this time - c/w inhaled therapy as ordered Chronic diastolic congestive heart failure - Not currently in exacerbation / appears to be euvolemic - holding furosemide, spironolactone DLP - c/w Atorvastatin and ASA 81 CKD3 - Cr baseline of 1.3-1.5 - Cr slightly above baseline, trending down - Will hold Furosemide Questionable history of atrial fibrillation - EKG 07/26: Sinus rhythm - c/w Amiodarone - Not on full anticoagulation Gout - c/w Allopurinol DVT prophylaxis - c/w Lovenox 40 QD Dispo - pending clinical improvement, per physical therapy will likely require rehabilitation after discharge. - I spoke to patient's daughter, Sulema Mckeon at [phone] and updated her as to progress, as well as answered all questions in detail. VS, I&O, 24H, Fishbone Vital Signs/I&O Vital Signs Date Time Temp Pulse Resp B/P (MAP) Pulse Ox O2 Delivery O2 Flow Rate FiO2 08/08/20 13:00 92 Venturi Mask 15.0 40 08/08/20 08:23 96.5 86 20 144/68 (93) I&O- Last 24 Hours up to 6 AM 08/08/20 06:00 Intake Total 580 ml Output Total 200 ml Balance 380 ml Laboratory Data 24H LABS Laboratory Tests 2 08/08/20 08:11: Anion Gap 8, Glomerular Filtration Rate 49.1, Calcium Level 9.3, Magnesium Level 2.4, Ferritin 280, Total Bilirubin 1.3H, Aspartate Amino Transf (AST/SGOT) 21, Alanine Aminotransferase (ALT/SGPT) 33, Alkaline Phosphatase 67, C-Reactive Protein, Quantitative 0.30, Total Protein 5.2L, Albumin 2.7L, Albumin/Globulin Ratio 1.1 08/08/20 09:32: Procalcitonin 0.12 08/08/20 10:13: Immature Granulocyte % (Auto) , Neutrophils (%) (Auto) , Nucleated Red Blood Cells % (auto) 0.7H, Neutrophils 89H, Band Neutrophils 1, Lymphocytes (Manual) 3L, Monocytes (Manual) 5, Metamyelocytes 2H, Anisocytosis 1+, Platelet Estimate NORMAL, Fibrinogen 318, D-Dimer, Quantitative 825.87H CBC/BMP Laboratory Tests 08/08/20 08:11 08/08/20 10:13 Microbiology Microbiology 08/06/20 Gram Stain - Final, Complete 08/06/20 Sputum Culture - Final, Complete Yeast Like Organism MIL WHIPPLE MD Aug 08, 2020 14:06
[2020-08-08] MEDS: zolPIDEM TARTRATE 5 MG TAB PO SCH (21:07)
[2020-08-08] MEDS: ENOXAPARIN 40MG/0.4ML SYRINGE (J1650 PER 10MG) SC SCH (21:07)
[2020-08-08] MEDS: ATORVASTATIN 20 MG TAB PO SCH (21:07)
[2020-08-09] VITALS: O2SAT 91
[2020-08-09] MEDS: ALBUTEROL SULFATE 2.5 MG/0.5 ML INH NEB SOLN NEB SCH ×4 (01:30→19:49)
[2020-08-09 02:00] VITALS: O2SAT 90
[2020-08-09 04:00] VITALS: BP 131/64; O2SAT 90
[2020-08-09 08:00] VITALS: BP 137/63; O2SAT 91
[2020-08-09] MEDS: SYMBICORT 160/4.5MCG INHALER 6GM INH SCH ×2 (08:01→19:49)
[2020-08-09] MEDS: dexameTHASONE 20MG/5ML VIAL (J1100 PER 1MG) IV SCH (09:00)
[2020-08-09] MEDS: allopurinoL 100 MG TAB PO SCH (09:00)
[2020-08-09] MEDS: DOXYCYCLINE HYCLATE 100MG TABLET PO SCH (09:00)
[2020-08-09] MEDS: AMIODARONE 200 MG TAB (PACERONE) PO SCH (09:00)
[2020-08-09] MEDS: LORATADINE 10 MG TAB PO SCH (09:00)
[2020-08-09] MEDS: ASPIRIN 81 MG ENTERIC TAB PO SCH (09:00)
[2020-08-09 14:00] VITALS: BP 133/61
--- NOTE | 2020-08-09 15:05 | IPNPDOC ---
Date Seen The patient was seen on 08/09/20. Progress Note SUBJECTIVE: 85-year-old male with a PMHx of COPD / Chronic hypoxic respiratory failure (on 3-4L of [place] oxygen at home), A. fib, Diastolic CHF, DLP, Gout who presented to the emergency room with several day history of worsening shortness of breath, COVID19 + on 07/26/20. Patient seen and examined at bedside. Denies chest pain, seizures of breath, nausea, vomiting, diarrhea, fevers or chills. Continues to be on Ventimask. Lying on the side appears comfortable. OBJECTIVE PHYSICAL EXAMINATION: VITAL SIGNS: please see below General: NAD, comfortable HEENT: PERRLA, EOMI, sclerae clear Neck: supple, normal ROM, no JVD Respiratory: lungs CTAB, no wheeze, no rales, no crackles CVS: RRR, normal S1, S2, no murmurs Abdo: soft, no masses, no hepatosplenomegaly, BS+, no rebound tenderness Extremities: no edema, pulses 2+ MSK: no joint deformities, normal ROM Neuro: no focal neuro deficits, moving all 4 extremities, CN2-12 intact. Strength 5/5 in all 4 extremities. No nystagmus. Psych: calm, cooperative, AAO x 3 LABORATORY DATA, IMAGING STUDIES, MICROBIOLOGY: Please see below. Liver US (08/07/20): Right renal cysts including 1 large renal cyst. This is visible on prior CT study from 2014. Somewhat coarse liver texture. 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 Otherwise negative right upper quadrant sonography. CXR (08/04/20): Bilateral lower lobe opacities/consolidations (left greater than right) with possible left pleural effusion. Findings have progressively increased as compared with 07/26/2020. DVT prophylaxis ordered?: lovenox 40 mg qdaily PROBLEMS: Acute on chronic hypoxic respiratory failure - likely 2/2 COVID19 pneumonia; possibly 2/2 superimposed bacterial infection -Patient on Ventimask at 50 L at 50% FiO2 overnight, tolerated nasal cannula at 10 L while eating breakfast. - At baseline patient uses 3-4 L of nasal cannula oxygen - Inflammatory markers have shown some level of improvement, CRP trending down - Imaging noted - pleural effusion. The left side has improved, discussed with Dr. Guerrero, no pleural effusion or further workup indicated. - Will check sputum cultures - c/w Dexamethasone and Remdesivir (Day#10) - DC cefepime (3 days) - c/w Doxycycline (Day #5) - c/w Incentive spirometry and symptomatic control Leukocytosis / Fever - CXR 08/04: Bilateral lower lobe opacities/consolidations (left greater than right) with possible left pleural effusion. Findings have progressively increased as compared with 07/26/2020. - Repeat chest x-ray showed resolution of pleural effusion. Discuss with Dr. Guerrero for further workup indicated. - WBC trending up, in setting of steroid use. Slight increase in procal. - repeat CXR 08/09/20 pending - check blood cultures again Chronic COPD - No evidence of exacerbation at this time - c/w inhaled therapy as ordered Chronic diastolic congestive heart failure - Not currently in exacerbation / appears to be euvolemic - holding furosemide, spironolactone DLP - c/w Atorvastatin and ASA 81 CKD3 - Cr baseline of 1.3-1.5 - Cr slightly above baseline, trending down - Will hold Furosemide Questionable history of atrial fibrillation - EKG 07/26: Sinus rhythm - c/w Amiodarone - Not on full anticoagulation Gout - c/w Allopurinol DVT prophylaxis - c/w Lovenox 40 QD Dispo - pending clinical improvement, per physical therapy will likely require rehabilitation after discharge. - I spoke to patient's daughter, Sulema Mckeon at [phone] and updated her as to progress, as well as answered all questions in detail. VS, I&O, 24H, Fishbone Vital Signs/I&O Vital Signs Date Time Temp Pulse Resp B/P (MAP) Pulse Ox O2 Delivery O2 Flow Rate FiO2 08/09/20 14:00 96.0 74 22 133/61 (85) 94 Venturi Mask 15.0 40 I&O- Last 24 Hours up to 6 AM 08/09/20 06:00 Intake Total 960 ml Balance 960 ml Laboratory Data Microbiology Microbiology 08/06/20 Gram Stain - Final, Complete 08/06/20 Sputum Culture - Final, Complete Yeast Like Organism MIL WHIPPLE MD Aug 09, 2020 15:05
--- NOTE | 2020-08-09 15:52 | REP ---
INDICATION: prior pleural effusion. COMPARISON: Multiple the latest 08/06/2020 TECHNIQUE: Portable FINDINGS: The technique utilized in obtaining the radiograph has magnified the cardiac silhouette and accentuated the interstitial markings. The cardiomediastinal silhouette is unchanged. The cardiac silhouette is magnified by technique. Mild cardiomegaly cannot be ruled out. Patchy parenchymal opacities are unchanged. There are no new abnormal opacities. There are no new pleural effusions. There is no change in the osseous structures. IMPRESSION: No significant change. <Electronically signed by Danny Gonzalez > 08/09/20 0796
[2020-08-09 16:10] LABS: HEMATOCRIT 39.8 % (42.0-52.0); HEMOGLOBIN 12.5 g/dl (13.5-17.5); MEAN CORPUSCULAR HEMOGLOBIN 29.1 pg (27.0-33.0); MEAN CORPUSCULAR HGB CONC 31.4 g/dl (32.0-36.5); MEAN CORPUSCULAR VOLUME 92.6 fl (80.0-96.0); PLATELET COUNT, AUTOMATED 219 10^3/uL (150-450)
[2020-08-09 16:29] LABS: LYMPHOCYTES 1 % (16-44); MONOCYTES 2 % (0-5); NEUTROPHILS 97 % (28-66)
[2020-08-09 16:30] LABS: ANISOCYTOSIS 1+
[2020-08-09 16:31] LABS: PLATELET ESTIMATE NORMAL (NORMAL)
[2020-08-09 16:32] LABS: HYPERSEGMENTED POLYS 1+
[2020-08-09 16:33] LABS: INR 0.98; PROTHROMBIN TIME 13.2 SECONDS (12.5-14.3)
[2020-08-09 16:34] LABS: PARTIAL THROMBOPLASTIN TIME 24.9 SECONDS (24.2-38.5)
[2020-08-09 16:36] LABS: D-DIMER QUANT 752.52 ng/ml (<500)
[2020-08-09 16:49] LABS: ALBUMIN 2.9 GM/DL (3.2-5.2); BILIRUBIN,DIRECT 0.5 MG/DL (0.0-0.2); BILIRUBIN,TOTAL 1.3 MG/DL (0.2-1.0); C REACTIVE PROTEIN QUANTITATIV 0.3 MG/DL (0.00-0.30); CALCIUM LEVEL 9.1 MG/DL (8.8-10.2); CREATININE FOR GFR 1.75 MG/DL (0.70-1.30); GLOMERULAR FILTRATION RATE 39.8 (>35); POTASSIUM SERUM 5.3 MEQ/L (3.5-5.1); TOTAL PROTEIN 5.5 GM/DL (6.4-8.2); TROPONIN I 0.08 NG/ML (< 0.10)
[2020-08-09 17:13] LABS: APPEARANCE, URINE HAZY (CLEAR); BACTERIA, URINE AUTO NEGATIVE (NEGATIVE); BILIRUBIN, URINE AUTO NEGATIVE (NEGATIVE); BLOOD, URINE BLOOD NEGATIVE (NEGATIVE); COLOR, URINE YELLOW (YELLOW); GLUCOSE, URINE (UA) AUTO 2+ mg/dL (NEGATIVE); KETONE, URINE AUTO NEGATIVE (NEGATIVE); LEUKOCYTE ESTERASE, URINE AUTO NEGATIVE (NEGATIVE); MUCUS, URINE SMALL (NEGATIVE); NITRITE, URINE AUTO NEGATIVE (NEGATIVE); PROTEIN, URINE AUTO 1+ mg/dL (NEGATIVE); RBC, URINE AUTO 1 /HPF (0-3); SPECIFIC GRAVITY URINE AUTO 1.023 (1.002-1.035); SQUAMOUS EPITHELIAL CELL UR AU 1 /HPF (0-6); UROBILINOGEN, URINE AUTO 0.2 mg/dL (0.0-2.0); WBC, URINE AUTO 1 /HPF (0-3)
[2020-08-09] MEDS ORDERED: ATROPINE SULFATE 1% OP SOLN 2 ML BTL SL PRN (18:00)
[2020-08-09] MEDS ORDERED: SCOPOLAMINE 1MG TRANSDERMAL PATCH TOP PRN (18:00)
[2020-08-09] MEDS ORDERED: FLEET ENEMA PR PRN (18:00)
[2020-08-09] MEDS ORDERED: HYOSCYAMINE SULFATE 0.125 MG SUBL TABLET PO PRN (18:00)
[2020-08-09] MEDS ORDERED: BISACODYL 10 MG SUPP PR PRN (18:00)
[2020-08-09] MEDS ORDERED: ONDANSETRON 4MG/2ML VIAL IV PRN (18:00)
[2020-08-09] MEDS: MORPHINE 10MG/0.5ML ORAL CONCENTRATE SOLUTION U/D SL PRN (18:11)
[2020-08-09] MEDS: ENOXAPARIN 40MG/0.4ML SYRINGE (J1650 PER 10MG) SC SCH (19:44)
[2020-08-09] MEDS: zolPIDEM TARTRATE 5 MG TAB PO SCH (19:44)
[2020-08-09 22:28] VITALS: O2SAT 88
[2020-08-10] VITALS (13 sets, daily range): O2SAT 85–93
[2020-08-10] MEDS: LORazepam 2 MG/ML VIAL IV PRN ×4 (00:47→18:14)
[2020-08-10] MEDS: ALBUTEROL SULFATE 2.5 MG/0.5 ML INH NEB SOLN NEB SCH ×4 (02:00→20:00)
[2020-08-10] MEDS: MORPHINE 2 MG/ML 1ML VIAL (J2270) IV PRN ×4 (02:07→23:19)
[2020-08-10 07:00] LABS: RSV AMPLIFICATION NEGATIVE (NEGATIVE)
[2020-08-10] MEDS: SYMBICORT 160/4.5MCG INHALER 6GM INH SCH ×2 (07:30→20:00)
[2020-08-10] MEDS ORDERED: LORazepam 2 MG/ML VIAL As Ordered ONE ×2 (12:54→18:02)
[2020-08-10] MEDS: LORATADINE 10 MG TAB PO SCH (13:03)
[2020-08-10] MEDS: zolPIDEM TARTRATE 5 MG TAB PO SCH (21:00)
[2020-08-10] MEDS: ENOXAPARIN 40MG/0.4ML SYRINGE (J1650 PER 10MG) SC SCH (21:00)
[2020-08-11] MEDS: ALBUTEROL SULFATE 2.5 MG/0.5 ML INH NEB SOLN NEB SCH ×5 (02:00→23:44)
[2020-08-11] MEDS: MORPHINE 2 MG/ML 1ML VIAL (J2270) IV PRN (05:11)
[2020-08-11] MEDS: LORazepam 2 MG/ML VIAL IV PRN ×5 (06:10→17:57)
[2020-08-11] MEDS ORDERED: MORPHINE 2 MG/ML 1ML VIAL (J2270) IV PRN (06:15)
[2020-08-11] MEDS: SYMBICORT 160/4.5MCG INHALER 6GM INH SCH ×2 (08:00→20:00)
[2020-08-11] MEDS: MORPHINE 10MG/0.5ML ORAL CONCENTRATE SOLUTION U/D SL PRN ×5 (08:16→17:56)
[2020-08-11] MEDS: LORATADINE 10 MG TAB PO SCH (09:00)
[2020-08-11] MEDS ORDERED: LORazepam 2 MG/ML VIAL As Ordered ONE (10:23)
[2020-08-11] MEDS ORDERED: MORPHINE SULF IN 0.9% NACL 100 MG in IV 1 EA IV SCH ×2 (11:00)
[2020-08-11 16:00] VITALS: O2SAT 90
[2020-08-12] MEDS: ALBUTEROL SULFATE 2.5 MG/0.5 ML INH NEB SOLN NEB SCH (08:00)
[2020-08-12] MEDS: SYMBICORT 160/4.5MCG INHALER 6GM INH SCH (08:00)
[2020-08-12] MEDS: LORATADINE 10 MG TAB PO SCH (08:40)
--- NOTE | 2020-08-12 10:43 | DS.PDOC ---
Discharge Summary General Date of Admission Jul 26, 2020 at 13:07 Date of Discharge 08/12/2020 Discharge Summary PROCEDURES PERFORMED DURING STAY: [None]. ADMITTING DIAGNOSES / DISCHARGE DIAGNOSES: Acute on chronic hypoxic respiratory failure - likely 2/2 COVID19 pneumonia; possibly 2/2 superimposed bacterial infection Leukocytosis / Fever Chronic COPD Chronic diastolic congestive heart failure DLP CKD3 Questionable history of atrial fibrillation Gout DVT prophylaxis COMPLICATIONS/CHIEF COMPLAINT: Shortness of breath HISTORY OF PRESENT ILLNESS / HOSPITAL COURSE: 85-year-old male with a PMHx of COPD / Chronic hypoxic respiratory failure (on 3-4L of [place] oxygen at home), A. fib, Diastolic CHF, DLP, Gout who presented to the emergency room with several day history of worsening shortness of breath, COVID19 + on 07/26/20. Patient was initially admitted to the hospital service for further evaluation and treatment. Patient was started on dexamethasone and remdesivir and has received a ten-day course his hospital course was complicated with worsening leukocytosis and fevers imaging suggested a possible effusion and pneumonia. He was started on cefepime and doxycycline. Patient's effusion had improved however, patient had decided that he wanted to proceed with comfort measures. She was ultimately transitioned is SATURATOR OPERATOR on 08/09. Most form was updated family was informed and patient ultimately on 08/12/2020. Family was present at the bedside. DISCHARGE MEDICATIONS: Please see below. ALLERGIES: Please see below. PHYSICAL EXAMINATION ON DISCHARGE: VITAL SIGNS: Please see below. GENERAL: Laying in bed, appears comfortable, minimally arousable DISPOSITION: DISCHARGE CONDITION: [Stable]. TIME SPENT ON DISCHARGE: 25 minutes Vital Signs/I&Os Vital Signs Date Time Temp Pulse Resp B/P (MAP) Pulse Ox O2 Delivery O2 Flow Rate FiO2 08/11/20 21:00 15.0 08/11/20 18:26 24 Non-Rebreather 08/11/20 16:00 90 08/09/20 17:52 80 08/09/20 14:00 96.0 74 133/61 (85) I&O- Last 24 Hours up to 6 AM 08/12/20 05:59 Intake Total 64 ml Output Total 500 ml Balance -436 ml Microbiology Microbiology 08/09/20 Blood Culture - Preliminary, Resulted No Growth after 48 hours. All Specime... 08/09/20 Blood Culture - Preliminary, Resulted No Growth after 48 hours. All Specime... 08/06/20 Gram Stain - Final, Complete 08/06/20 Sputum Culture - Final, Complete Yeast Like Organism Discharge Medications Scheduled Allopurinol (Allopurinol) 100 Mg Tablet, 100 MG PO DAILY, (Reported) Amiodarone HCl (Amiodarone HCl) 200 Mg Tablet, 200 MG PO Q2D, (Reported) Aspirin (Aspirin EC) 81 Mg Tablet.dr, 81 MG PO DAILY, (Reported) Atorvastatin Calcium (Atorvastatin Calcium) 40 Mg Tablet, 40 MG PO QHS, (Reported) Cholecalciferol (Vitamin D3) (Vitamin D3) 25 Mcg Tablet, 25 MCG PO DAILY, (Reported) Formoterol Fumarate (Perforomist) 20 Mcg/2 Ml Vial.neb, 20 MCG INH BID, (Reported) Furosemide (Furosemide) 40 Mg Tablet, 40 MG PO DAILY, (Reported) FOR HOME WEIGHT OF 207LBS OR MORE Loratadine (Loratadine) 10 Mg Tablet, 10 MG PO DAILY, (Reported) Prednisone (Prednisone) 10 Mg Tablet, 20 MG PO DAILY, (Reported) Spironolactone (Spironolactone) 25 Mg Tablet, 25 MG PO DAILY, (Reported) Scheduled PRN Ipratropium/Albuterol Sulfate (Iprat-Albut 0.5-3(2.5) mg/3 ml) 3 Ml Ampul.neb, 1 JUANJO INH QID PRN for SHORTNESS OF BREATH, (Reported) Allergies Coded Allergies: No Known Allergies (Unverified , 07/26/20) CHUY SLAUGHTER MD Aug 12, 2020 10:43
== END 2020-08-12 09:20 | disposition expired | DRG 177 ==
LOC: M ED 08:44 → M ED INP 13:07 → M 4MAIN 17:38
PROVIDERS: ADMIT Internal Medicine; ATTEND Internal Medicine
PROC: XW033E5 Introduction of Remdesivir Anti-infective into Peripheral Vein, Percutaneous Approach, New Technology Group 5 (ICD-10-PCS; principal; 2020-07-26)
PROC: 3E0333Z Introduction of Anti-inflammatory into Peripheral Vein, Percutaneous Approach (ICD-10-PCS; 2020-07-26)
DX: U07.1 COVID-19 (principal); J96.21 Acute and chronic respiratory failure with hypoxia; J12.89 Other viral pneumonia; J15.9 Unspecified bacterial pneumonia; I50.32 Chronic diastolic (congestive) heart failure; J44.1 Chronic obstructive pulmonary disease with (acute) exacerbation; I13.0 Hypertensive heart and chronic kidney disease with heart failure and stage 1 through stage 4 chronic kidney disease, or unspecified chronic kidney disease; J90 Pleural effusion, not elsewhere classified; I48.91 Unspecified atrial fibrillation; M10.9 Gout, unspecified; N18.30 Chronic kidney disease, stage 3 unspecified; Z51.5 Encounter for palliative care; Z66 Do not resuscitate; E78.5 Hyperlipidemia, unspecified; Z99.81 Dependence on supplemental oxygen; Z79.82 Long term (current) use of aspirin; Z79.52 Long term (current) use of systemic steroids; Z79.899 Other long term (current) drug therapy